=== PATIENT | male | born 1945 | race Caucasian/White ===

== ENCOUNTER → 2016-07-19 | Outpatient (CLI) | payer MEDICARE ==
[2016-07-19 09:02] VITALS: BP 122/83; PULSE 64; RESP 16; TEMP 97; BMI 27.8
[2016-07-19 11:19] LABS: HCT 40.9 % (39.0-53.0); HDW 2.58; HGB 13.1 gm/dL (13.0-17.5); MCH 31.1 pg (25.0-35.0); MCHC 31.9 g/dL (31.0-37.0); MCV 97.4 fL (80.0-100.0); Mean Platelet Volume 7.2; RDW 13.4 % (11.5-15.5); WBC 4.5 k/uL (3.8-10.6)
--- NOTE | 2016-07-19 11:27 | P.GSHP ---
History of Present Illness H&P Date: 07/19/16 Chief Complaint: Status post Anders-en-Y gastric bypass 07/06/2014 70 years old male with morbid obesity S/P lap RYGB on 07/06/14 presents for general assessment following Anders-en-Y gastric bypass. Denies any nausea or vomiting. Has been able to adhere to bariatric diet . He has joined [employer] and is increasing his physical activity. He is working in [employer] His comorbid conditions include diabetes mellitus (now resolved), coronary artery disease status post quadruple bypass , history of TIA, obstructive sleep apnea on CPAP, hypertension, hypercholesterolemia (now resolved )and A fib on Xarelto . He has resumed aspirin and PPI was started for prevention of gastric ulcerations. Intermittent rectal bleeding- streaks of bright blood. Last colonoscopy in 2012- known hemorrhoids Preopvisit #1 03/18/13: 193 kgs (425.6lbs) , BMI 54.6 Preopvisit #2 05/20/14: 187.3 kgs(413lbs), BMI 53 Preopvisit #3 07/01/14: 181.23 kgs, BMI 51.2 Operation day 07/06/14: 180.9 kgs, BMI 51 Postop visit # 1 07/15/14: 177.7 kgs, BMI 50.3 Postop visit #2 07/29/14: 169.78 kgs, BMI 48.1 Postop visit #3, 08/19/14: 162.84 kgs, BMI 46 Postop visit #4, 11/11/14: 146.92 kgs, BMI 41.5 Postop visit #5, 12/30/14: 139.66 kgs, BMI 39.5 Postop visit #6, 02/10/2015: 130 kgs, BMI 37 Postop visit #7, 03/17/2015: 127.63kgs, BMI 36.1 Postop visit #8, 06/16/2015: 115.26 KG, BMI 32.6 Postop visit #9, 12/15/2015: 102.24 KG, BMI 28.9 Postop visit #9, 12/15/2015: 98KG, BMI 27.8 - Review of Systems Comment: Constitutional: Denies fever, weight loss or loss of appetite HEENT: No difficulty in vision. Denies dysphagia. He has hearing difficulty Cardiovascular: Coronary artery disease status post quadruple bypass. Atrial fibrillation on Xarelto. Respiratory: Obstructive sleep apnea Gastrointestinal: No recent change in bowel habits, no abdominal pain, no nausea or vomiting. Denies reflux symptoms and no postprandial right upper quadrant pain. Colonoscopy was normal Integumentary: Excess skin along the lower abdomen and breast Genitourinary: No urinary incontinence, hematuria or dysuria Neurologic: No seizures, denies weakness in upper or lower extremities Musculoskeletal: Status post bilateral hip replacements . Status post-right knee replacement Psychiatry:No history of depression, no suicidal ideation, no anxiety or psychosis Social history: Patient is . He is actively participating in different school sports Past Medical History Past Medical History: Atrial Fibrillation, Coronary Artery Disease (CAD), Cancer , CVA/TIA, Hearing Disorder / Deafness, Hypertension, Sleep Apnea/CPAP/BIPAP Additional Past Medical History / Comment(s): TIA 2008, SKIN CA- BASAL CELL 2013 History of Any Multi-Drug Resistant Organisms: None Reported Past Surgical History: Back Surgery, Coronary Bypass/CABG, Joint Replacement, Orthopedic Surgery Additional Past Surgical History / Comment(s): 01-15-15 TOTAL RT KNEE ARTHROPLASTY. HIP REPLACEMENT BILATERAL, KNEE LEFT ARTHROSCOPY, DANA ACHILLIS TENDON REPAIR, CABG-4 VESSELS, MOHS SKIN CANCER SURGERY, ANDERS-EN-Y GASTRIC BYPASS (JUNE 2014) Past Anesthesia/Blood Transfusion Reactions: No Reported Reaction Past Psychological History: No Psychological Hx Reported Smoking Status: Former smoker Past Alcohol Use History: Rare Past Drug Use History: None Reported - Past Family History Father Family Medical History: Cancer, Myocardial Infarction (NM) Additional Family Medical History / Comment(s): SKIN CA, Mother Family Medical History: Memory Impairment Medications and Allergies Home Medications Medication Instructions Recorded Confirmed Type Simvastatin [Zocor] 40 mg PO HS 03/18/14 07/19/16 History Multivitamins, Thera [Multivitamin 2 tab PO DAILY 07/06/14 07/19/16 History (formulary)] Aspirin 81 mg PO DAILY 07/29/14 07/19/16 History Rivaroxaban [Xarelto] 20 mg PO DAILY 01/08/15 07/19/16 History Vitamin A 10,000 Units 10,000 units PO DAILY 01/08/15 07/19/16 History Calcium Citrate 500 mg PO TID 01/15/15 07/19/16 History Metoprolol Tartrate [Lopressor] 25 mg PO BID 03/17/15 07/19/16 History Hydrochlorothiazide 25 mg PO AC-BRKFST 06/16/15 07/19/16 History Lisinopril [Zestril] 10 mg PO BID 12/15/15 07/19/16 History Allergies Allergy/AdvReac Type Severity Reaction Status Date / Time No Known Allergies Allergy Verified 07/19/16 10:59 Surgical - Exam Vital Signs Temp Pulse Resp BP 97.0 F L 64 16 122/83 07/19/16 09:00 07/19/16 09:00 07/19/16 09:00 07/19/16 09:00 General: Patient is alert and oriented to time, place and person and cooperative with exam. HEENT: No pallor, no icterus, no thyroid enlargement. Chest: Bilateral equal breath sounds present. No wheezes, no crackles. Cardiovascular: Regular rate and rhythm. Abdomen: Soft, nontender, nondistended. No right upper quadrant tenderness. Surgical incisions are clean, dry and intact. Integumentary: No active ulcers or discharge. No panniculitis. Excess skin along the breasts and lower abdomen Neurologic: Cranial nerves II-XII intact. Strength upper and lower extremities 5/5. No focal neurologic deficits. Psychiatric: No anxiety or psychosis. No suicidal thoughts. Musculoskeletal: He walks without much difficulty Assessment and Plan (1) Atrial fibrillation Status: Acute (2) History of Anders-en-Y gastric bypass Status: Acute (3) Hypercholesteremia Status: Acute (4) S/P total knee arthroplasty Status: Acute Plan: S/P Lap RYGB with HTN, A fib, CAD and sleep apnea 1. Increase physical activity as tolerated 2. Continue Protonix 20 mg po daily to prevent marginal ulcers secondary to aspirin 3. Continue high protein diet and protein shakes. 4. Continue chewable MVI daily 5. Blood pressure medication adjustment as per primary 6. Follow-up in 1 year. 7. Repeat CBC, CMP and Vitamin and mineral levels 8. Rectal bleeding - Bright red most likely secondary to hemorrhoids and XArelto. Will check CBC
[2016-07-19 11:42] LABS: ALT 50 U/L (21-72); AST 39 U/L (17-59); Alkaline Phosphatase 74 U/L (38-126); Anion Gap 9 mmol/L; Blood Urea Nitrogen 16 mg/dL (9-20); Calcium 9.8 mg/dL (8.4-10.2); Carbon Dioxide 29 mmol/L (22-30); Chloride 104 mmol/L (98-107); Cholesterol 131 mg/dL (<200); Glucose 88 mg/dL (74-99); HDL Cholesterol 84 mg/dL (40-60); Iron 68 ug/dL (49-181); Magnesium 2.1 mg/dL (1.6-2.3); Non-African American GFR(MDRD) >60 (>60 ml/min/1.73 sqM); Phosphorous 3.7 mg/dL (2.5-4.5); Potassium 4.9 mmol/L (3.5-5.1); Sodium 142 mmol/L (137-145); Total Bilirubin 0.8 mg/dL (0.2-1.3); Total Protein 6.9 g/dL (6.3-8.2); Triglycerides 33 mg/dL (<150)
[2016-07-19 11:53] LABS: % Iron Saturation 19.6 % (20-50); Prealbumin 17 mg/dL (18-36); Total Iron Binding Capacity 347 ug/dL (261-462)
[2016-07-19 12:31] LABS: Hemoglobin A1C 5.2 % (4.2-6.1)
[2016-07-19 12:48] LABS: Vitamin B12 504 pg/mL
[2016-07-22 14:26] LABS: Selenium 182 mcg/L (63-160)
== END | disposition home or self-care (01) ==
LOC: BARWHC3 08:48
PROVIDERS: ATTEND Surgery
DX: E66.01 Morbid (severe) obesity due to excess calories (principal); I48.91 Unspecified atrial fibrillation; E78.00 Pure hypercholesterolemia, unspecified; I10 Essential (primary) hypertension; I25.10 Atherosclerotic heart disease of native coronary artery without angina pectoris; Z98.84 Bariatric surgery status; Z96.659 Presence of unspecified artificial knee joint; Z86.73 Personal history of transient ischemic attack (TIA), and cerebral infarction without residual deficits; Z87.891 Personal history of nicotine dependence; Z79.82 Long term (current) use of aspirin; Z79.899 Other long term (current) drug therapy; Z79.01 Long term (current) use of anticoagulants
CPT/HCPCS: 84255; 84134; 84425; 80061; 80053; 82607; 82728; 83036; 82525; 82746; 83540; 83550; 83735; 84100; 84443; 84590; 84630; 85027; 82306; 83970; G0463; 99211

== ENCOUNTER → 2017-06-13 | Outpatient (CLI) | payer MEDICARE ==
[2017-06-13 17:24] VITALS: BP 127/73; PULSE 66; TEMP 97.7; BMI 28.4
[2017-06-13 17:43] LABS: HCT 30.2 % (39.0-53.0); HGB 8.7 gm/dL (13.0-17.5); Hypochromasia Marked; MCH 22.8 pg (25.0-35.0); MCHC 28.8 g/dL (31.0-37.0); MCV 79.3 fL (80.0-100.0); Mean Platelet Volume 8.2; Platelet Count 269 k/uL (150-450); RBC 3.81 m/uL (4.30-5.90); RDW 15.7 % (11.5-15.5); WBC 4.8 k/uL (3.8-10.6)
[2017-06-13 17:57] LABS: ALT 26 U/L (21-72); AST 25 U/L (17-59); Albumin 3.9 g/dL (3.5-5.0); Alkaline Phosphatase 65 U/L (38-126); Anion Gap 12 mmol/L; Blood Urea Nitrogen 13 mg/dL (9-20); Calcium 9.4 mg/dL (8.4-10.2); Carbon Dioxide 26 mmol/L (22-30); Chloride 107 mmol/L (98-107); Cholesterol 127 mg/dL (<200); Glucose 67 mg/dL (74-99); HDL Cholesterol 80 mg/dL (40-60); LDL Cholesterol,Calculated 40 mg/dL (0-99); Phosphorus 3.9 mg/dL (2.5-4.5); Potassium 4.4 mmol/L (3.5-5.1); Sodium 145 mmol/L (137-145); Total Bilirubin 0.3 mg/dL (0.2-1.3); Total Protein 6.5 g/dL (6.3-8.2); Triglycerides 33 mg/dL (<150)
[2017-06-13 17:59] LABS: INR 1.1 (<1.2); Partial Thromboplastin Time 24.8 sec (22.0-30.0); Prothrombin Time 10.9 sec (9.0-12.0)
[2017-06-14 01:03] LABS: Parathyroid Hormone Intact 86.4 pg/mL (14.0-72.0)
[2017-06-14 01:47] LABS: Vitamin D 25 Hydroxy 27.1 ng/mL (30.0-100.0)
[2017-06-14 01:54] LABS: Folate, Serum 21.1 ng/mL; Iron Saturation 4.22 (15.00-50.00)
[2017-06-14 02:11] LABS: Hemoglobin A1C 5.5 % (4.0-6.0)
[2017-06-14 15:48] LABS: Zinc, Serum 53 ug/dL (60-130)
[2017-06-15 05:48] LABS: Vitamin A 32 ug/dL (38-106)
[2017-06-15 09:59] LABS: Vitamin B1 58 ug/L (38-122)
[2017-06-16 18:13] LABS: Selenium 170 mcg/L (63-160)
--- NOTE | 2017-07-07 18:08 | P.PN ---
Subjective Progress Note Date: 06/13/17 DATE OF SERVICE: 06/13/2017 REASON FOR CONSULTATION: Follow-up gastric bypass HISTORY OF PRESENT ILLNESS: Neil Munoz is a 71-year-old male who is status post gastric bypass 07/06/[address] De La Cruz. He is 3 years out. His previous weight was 425 pounds. His lowest weight was 211 pounds. Today he comes in 221 pounds. Since his visit 1 year ago, he gained 5 pounds. He has lost 204 pounds. [place] body weight 193 pounds. Percent excess weight loss is 88%. Body mass index reduced from 54.6 down to 28.4. Total BMI point reduction is 26.2. He is 28 pounds overweight. He feels great. He does report some abdominal pain along the left upper quadrant after eating. He takes blood thinners for his atrial fibrillation. He reports occasional dark stools. PAST MEDICAL HISTORY: 1. Morbid obesity. 2. Body mass index of 54.6, initial 3. Osteoarthritis of the knees. 4. Osteoarthritis of the hips. 5. Osteoarthritis of the lower back. 6. Obstructive sleep apnea, resolved 7. Hypertensive heart disease. 8. Basal cell skin cancer 9. Atrial fibrillation 10. Coronary artery disease 11. Cerebrovascular event with TIA 12. Diabetes mellitus type 2, resolved. 13. Hyperlipidemia 14. Gastroesophageal reflux disease 15. Diverticulosis PAST SURGICAL HISTORY: 1. Right knee replacement 2. Bilateral hip replacement 3. Left knee arthroscopy 4. Bilateral Achilles tendon repair 5. CABG 4 vessels 6. Mohs surgery for skin cancer removal 7. Gastric bypass, June 2014 8. Upper endoscopy 2014 9. Colonoscopy HOME MEDICATIONS: 1. Xarelto 2. Vitamin A 3. Zocor 4. Protonix 5. Multivitamin 6. Lopressor 7. Zestril 8. Calcium citrate 9. Aspirin ALLERGIES: Denies. SOCIAL HISTORY: No active tobacco use. Remote tobacco abuse. He is with at bedside. FAMILY HISTORY: No family history of ulcerative colitis disease or Crohn's disease. Family history of morbid obesity. No lupus in the family. No reports of stomach or esophageal cancer. Family history of diabetes type 2. Coronary artery disease in family. REVIEW OF ORGAN SYSTEMS: CONSTITUTIONAL: His previous weight was 425 pounds. His lowest weight was 211 pounds. Today he comes in 221 pounds. Since his visit 1 year ago, he gained 5 pounds. He has lost 204 pounds. [place] body weight 193 pounds. Percent excess weight loss is 88%. Body mass index reduced from 54.6 down to 28.4. Total BMI point reduction is 26.2. He is 28 pounds overweight. HEENT: Denies any active troubles with vision or hearing. No troubles with swallowing. ENDOCRINE: Diabetes, resolved. No hypothyroidism. CARDIOVASCULAR: No reports of palpitations or heart attacks or chest pain. Past myocardial ischemia. Atrial fibrillation. RESPIRATORY: Has daytime somnolence, resolved. No asthma. No recent pneumonia. GI: Denies any bright red blood per rectum. No diarrhea or constipation. Has dark stools. History of diverticulosis. MUSCULOSKELETAL: Has lower back pain and joint pain, improved. Has osteoarthritis of the knees, improved. NEURO: No headaches. No seizure disorders. PSYCH: No depression or suicidal ideation. RHEUMATOLOGIC: No lupus. No rheumatoid arthritis. HEMATOLOGIC: Denies any abnormal bleeding or bruising. No personal history of DVTs. SKIN: No rash. Past skin cancer. PHYSICAL EXAM: VITAL SIGNS: Height 6 foot 2 inches, weight 221 pounds. BMI 28.4 Vital Signs Temp 97.7 F 06/13/17 17:03 Pulse 66 06/13/17 17:03 Resp BP 127/73 06/13/17 17:03 Pulse Ox GENERAL: Well-developed in no acute distress. Well-groomed. HEENT: No scleral icterus. Extraocular movements grossly intact. Hears conversational speech. No nasal drainage. NECK: Supple without lymphadenopathy. CHEST: Nonlabored respirations with equal bilateral excursions. CARDIOVASCULAR: Irregular rate and irregular rhythm. Distal 2+ pulses. ABDOMEN: Obese, soft, nontender, nondistended. MUSCULOSKELETAL: No clubbing, cyanosis. Gross strength 5/5 distal lower extremities. No pre-tibial pitting edema. NEURO: No focal or lateralizing signs. Cranial nerves 2 through 12 grossly within normal limits. PSYCH: Appropriate affect. Alert and oriented to person, place and time. SKIN: Good skin turgor. Well perfused. Multiple ecchymoses along the skin over the forearms. ASSESSMENT: 1. Morbid obesity due to excess calories, resolved 2. Body mass index of 54.6 to 28.4. 3. Osteoarthritis of the knees. 4. Osteoarthritis of the hips. 5. Osteoarthritis of the lower back. 6. Obstructive sleep apnea, resolved 7. Hypertensive heart disease, improved 8. Basal cell skin cancer 9. Atrial fibrillation 10. Coronary artery disease 11. Cerebrovascular event with TIA 12. Diabetes mellitus type 2, resolved. 13. Hyperlipidemia 14. Gastroesophageal reflux disease 15. Diverticulosis 16. Gastrointestinal bleed 17. Epigastric abdominal pain PLAN: 1. Recommend bariatric metabolic panel. 2. He reports abdominal pain following eating. Recommend upper endoscopy. 3. He also reports dark stools which is consistent with gastrointestinal bleed. Recommend colonoscopy. 4. Recommend follow-up bariatric dietitian Thank you for this consultation. Laboratory Last Values WBC 4.8 k/uL (3.8-10.6) 06/13/17 17:16 RBC 3.81 m/uL (4.30-5.90) L 06/13/17 17:16 Hgb 8.7 gm/dL (13.0-17.5) L 06/13/17 17:16 Hct 30.2 % (39.0-53.0) L 06/13/17 17:16 MCV 79.3 fL (80.0-100.0) L 06/13/17 17:16 MCH 22.8 pg (25.0-35.0) L 06/13/17 17:16 MCHC 28.8 g/dL (31.0-37.0) L 06/13/17 17:16 RDW 15.7 % (11.5-15.5) H 06/13/17 17:16 Plt Count 269 k/uL (150-450) 06/13/17 17:16 Hypochromasia Marked 06/13/17 17:16 PT 10.9 sec (9.0-12.0) 06/13/17 17:16 INR 1.1 (<1.2) 06/13/17 17:16 APTT 24.8 sec (22.0-30.0) 06/13/17 17:16 Sodium 145 mmol/L (137-145) 06/13/17 17:16 Potassium 4.4 mmol/L (3.5-5.1) 06/13/17 17:16 Chloride 107 mmol/L (98-107) 06/13/17 17:16 Carbon Dioxide 26 mmol/L (22-30) 06/13/17 17:16 Anion Gap 12 mmol/L 06/13/17 17:16 BUN 13 mg/dL (9-20) 06/13/17 17:16 Creatinine 0.70 mg/dL (0.66-1.25) 06/13/17 17:16 Est GFR (CKD-EPI)AfAm >90 (>60 ml/min/1.73 sqM) 06/13/17 17:16 Est GFR (CKD-EPI)NonAf >90 (>60 ml/min/1.73 sqM) 06/13/17 17:16 Glucose 67 mg/dL (74-99) L 06/13/17 17:[address] Glu mg/dL 111 06/13/17 17:16 Hemoglobin A1c 5.5 % (4.0-6.0) 06/13/17 17:16 Calcium 9.4 mg/dL (8.4-10.2) 06/13/17 17:16 Phosphorus 3.9 mg/dL (2.5-4.5) 06/13/17 17:16 Magnesium 2.0 mg/dL (1.6-2.3) 06/13/17 17:16 Iron 20 ug/dL (65-175) L 06/13/17 17:16 TIBC 474 ug/dL (228-460) H 06/13/17 17:16 Iron Saturation 4.22 (15.00-50.00) L 06/13/17 17:16 Ferritin 10.2 ng/mL (22.0-322.0) L 06/13/17 17:16 Total Bilirubin 0.3 mg/dL (0.2-1.3) 06/13/17 17:16 AST 25 U/L (17-59) 06/13/17 17:16 ALT 26 U/L (21-72) 06/13/17 17:16 Alkaline Phosphatase 65 U/L (38-126) 06/13/17 17:16 Total Protein 6.5 g/dL (6.3-8.2) 06/13/17 17:16 Albumin 3.9 g/dL (3.5-5.0) 06/13/17 17:16 Prealbumin 17.0 mg/dL (18.0-42.0) L 06/13/17 17:16 Triglycerides 33 mg/dL (<150) 06/13/17 17:16 Cholesterol 127 mg/dL (<200) 06/13/17 17:16 LDL Cholesterol, Calc 40 mg/dL (0-99) 06/13/17 17:16 HDL Cholesterol 80 mg/dL (40-60) H 06/13/17 17:16 Vitamin A 32 ug/dL (38-106) L 06/13/17 17:16 Vitamin B1 58 ug/L (38-122) 06/13/17 17:16 Vitamin B12 580.0 pg/mL (200.0-944.0) 06/13/17 17:16 Vitamin D 25-Hydroxy 27.1 ng/mL (30.0-100.0) L 06/13/17 17:16 Folate 21.1 ng/mL 06/13/17 17:16 TSH 1.310 mIU/L (0.465-4.680) 06/13/17 17:16 PTH Intact 86.4 pg/mL (14.0-72.0) H 06/13/17 17:16 Copper 899 ug/L (665-1480) 06/13/17 17:16 Selenium 170 mcg/L (63-160) H 06/13/17 17:16 Zinc 53 ug/dL (60-130) L 06/13/17 17:16 Hemoglobin low MCHC and MCV low Glucose low Iron low Ferritin low Prealbumin level Vitamin A level HDL high Vitamin D level PTH elevated Selenium elevated Zinc low Review of labs consistent with multiple nutritional deficiencies. Recommend iron infusion Recommend vitamin supplement Recommend vitamin D supplement Recommend calcium supplement Reduce selenium intake Recommend zinc supplement Objective - Labs CBC & Chem 7: 06/13/17 17:16 06/13/17 17:16
== END | disposition home or self-care (01) ==
LOC: BARWHC3 15:15
PROVIDERS: ATTEND Surgery Plastic and Reconstructive Surgery
DX: Z09 Encounter for follow-up examination after completed treatment for conditions other than malignant neoplasm (principal); M17.0 Bilateral primary osteoarthritis of knee; M16.0 Bilateral primary osteoarthritis of hip; M19.90 Unspecified osteoarthritis, unspecified site; I11.9 Hypertensive heart disease without heart failure; I50.9 Heart failure, unspecified; C44.91 Basal cell carcinoma of skin, unspecified; I48.91 Unspecified atrial fibrillation; I25.10 Atherosclerotic heart disease of native coronary artery without angina pectoris; I67.89 Other cerebrovascular disease; E78.5 Hyperlipidemia, unspecified; K21.9 Gastro-esophageal reflux disease without esophagitis; K57.90 Diverticulosis of intestine, part unspecified, without perforation or abscess without bleeding; K92.2 Gastrointestinal hemorrhage, unspecified; R10.13 Epigastric pain; E21.1 Secondary hyperparathyroidism, not elsewhere classified; D50.9 Iron deficiency anemia, unspecified; K90.9 Intestinal malabsorption, unspecified; E44.0 Moderate protein-calorie malnutrition; E55.9 Vitamin D deficiency, unspecified; K74.1 Hepatic sclerosis; N19 Unspecified kidney failure; K50.90 Crohn's disease, unspecified, without complications; Z98.84 Bariatric surgery status; Z79.82 Long term (current) use of aspirin; Z79.899 Other long term (current) drug therapy
CPT/HCPCS: 84255; 84134; 84425; 80061; 80053; 82607; 82728; 82525; 82746; 83540; 83550; 83735; 84100; 84443; 84590; 84630; 85027; 85610; 85730; 82306; 83970; 83036; G0463; 99211

== ENCOUNTER → 2017-07-11 | Day surgery (SDC) | payer MEDICARE ==
[2017-07-09 12:10] VITALS: BMI 27.0
[~2017-07-11] MED LIST: LACTATED RINGERS 1,000 ML IV SCH; LIDOCAINE 1% 20 ML VIAL (10MG/ML) FOR IV START INTRADERMA PRN; LIDOCAINE 1% INJ 10MG/ML (20 ML MDV) ONE; PROPOFOL 10 MG/ML 20 ML VIAL IV ONE; RX INFO: IV CONTRAST WAS GIVEN 1 EACH MISC MISCELLANE PRN
--- NOTE | 2017-07-11 10:22 | P.GSHP ---
History of Present Illness H&P Date: 07/11/17 CHIEF COMPLAINT: GERD and colon screen HISTORY OF PRESENT ILLNESS: The patient is a 89year-old male who presents with gastroesophageal reflux disease and need for colon screen. Upper and lower endoscopy were offered for further evaluation and management. PAST MEDICAL HISTORY: Please see list. PAST SURGICAL HISTORY: Please see list. MEDICATIONS: Please see list. ALLERGIES: Please see list. SOCIAL HISTORY: No illicit drug use FAMILY HISTORY: No reports of Crohn disease or ulcerative colitis. REVIEW OF ORGAN SYSTEMS: CONSTITUTIONAL: No reports of fevers or chills. GI: Denies any blood in stools or constipation. PHYSICAL EXAM: VITAL SIGNS: Stable GENERAL: Well-developed pleasant in no acute distress. HEENT: No scleral icterus. Extraocular movements grossly intact. Moist buccal mucosa. NECK: Supple without lymphadenopathy. CHEST: Unlabored respirations. Equal bilateral excursions. CARDIOVASCULAR: Regular rate and rhythm. Distal 2+ pulses. ABDOMEN: Soft, nondistended. MUSCULOSKELETAL: No clubbing, cyanosis, or edema. ASSESSMENT: 1. Gastroesophageal reflux disease 2. Colon screen. PLAN: 1. Recommend proceeding with an upper and lower endoscopy Past Medical History Past Medical History: Atrial Fibrillation, Coronary Artery Disease (CAD), Cancer , CVA/TIA, Hypertension Additional Past Medical History / Comment(s): TIA 2008, SKIN CA- BASAL CELL 2013 History of Any Multi-Drug Resistant Organisms: None Reported Past Surgical History: Back Surgery, Coronary Bypass/CABG, Joint Replacement, Orthopedic Surgery Additional Past Surgical History / Comment(s): 01-15-15 TOTAL RT KNEE ARTHROPLASTY. HIP REPLACEMENT BILATERAL, KNEE LEFT ARTHROSCOPY, DANA ACHILLIS TENDON REPAIR, CABG-4 VESSELS, MOHS SKIN CANCER SURGERY, BRUNO-EN-Y GASTRIC BYPASS (JUNE 2014) Past Anesthesia/Blood Transfusion Reactions: No Reported Reaction Past Psychological History: No Psychological Hx Reported Smoking Status: Former smoker Past Alcohol Use History: Rare Past Drug Use History: None Reported - Past Family History Father Family Medical History: Cancer, Myocardial Infarction ([place]) Additional Family Medical History / Comment(s): SKIN CA, Mother Family Medical History: Memory Impairment Medications and Allergies Home Medications Medication Instructions Recorded Confirmed Type Simvastatin [Zocor] 40 mg PO HS 03/18/14 07/09/17 History Multivitamins, Thera [Multivitamin 2 tab PO DAILY 07/06/14 07/09/17 History (formulary)] Pantoprazole Sodium [Protonix] 20 mg PO DAILY #30 tab 07/15/14 07/09/17 Rx Aspirin 81 mg PO DAILY 07/29/14 07/09/17 History Rivaroxaban [Xarelto] 20 mg PO DAILY 01/08/15 07/09/17 History Vitamin A 10,000 Units 10,000 units PO DAILY 01/08/15 07/09/17 History Calcium Citrate 500 mg PO TID 01/15/15 07/09/17 History Metoprolol Tartrate [Lopressor] 25 mg PO BID 03/17/15 07/09/17 History Lisinopril [Zestril] 10 mg PO BID 12/15/15 07/09/17 History Allergies Allergy/AdvReac Type Severity Reaction Status Date / Time No Known Allergies Allergy Verified 07/09/17 12:03
[2017-07-11 11:01] VITALS: TEMP 97.9
[2017-07-11 12:15] VITALS: BP 133/80
[2017-07-11 12:23] VITALS: PULSE 78; RESP 18
--- NOTE | 2017-07-11 12:35 | P.PCN ---
Date of Procedure: 07/11/17 Description of Procedure: PREOPERATIVE DIAGNOSIS: Dysphagia. Epigastric abdominal pain History of gastric bypass Anemia POSTOPERATIVE DIAGNOSIS: Dysphagia. 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 INDICATIONS: The patient is a 71-year-old female who presents with a history of dysphagia, including new-onset nausea and vomiting. Benefits and risks of the procedure were described. Informed consent was obtained. DESCRIPTION: The patient was brought into the endoscopy suite and laid in the left lateral decubitus position. After a timeout was confirmed, the procedure was initiated. An Olympus gastroscope was passed along the posterior oropharynx down to the distal esophagus where the squamocolumnar junction was unremarkable. The gastric pouch was entered. A gastrojejunal anastomosis was over 20 mm as the adult gastroscope was 9.5 mm in size. The scope was advanced up to 60 cm from the incisors into the Anders limb. However chronic gastrojejunal marginal ulcer was encountered. No full-thickness injury was encountered. The GI tract was desufflated. The patient tolerated the procedure well. FINDINGS: Chronic gastrojejunal ulceration encountered. Widely patent gastrojejunal anastomosis RECOMMENDATIONS: Upper endoscopy as needed. Omeprazole for 2 weeks.
--- NOTE | 2017-07-11 12:52 | P.PCN ---
Date of Procedure: 07/11/17 Description of Procedure: PREOPERATIVE DIAGNOSIS: Colonoscopy screening. Iron deficiency anemia due to chronic blood loss Pandiverticulosis POSTOPERATIVE DIAGNOSIS: Colonoscopy screening. Iron deficiency anemia due to chronic blood loss Malignant adenoma, sigmoid Pandiverticulosis OPERATION: Colonoscopy to the ileocecal valve and appendiceal orifice. Colonoscopy with snare polypectomy Colonoscopy with cold forceps biopsy Colonoscopy with Chely ink tatto at 20 cm from the anal verge. SURGEON: Joi Vegas MD. ANESTHESIA: MAC. INDICATIONS: The patient is a 71-year-old male who presents for colonoscopy screening. Benefits and risks were described and informed consent was obtained. DESCRIPTION OF PROCEDURE: The patient had undergone Gatorade, MiraLAX and Dulcolax prep. He had been brought into the operating room and laid in the left lateral decubitus position. After adequate intravenous sedation, the rectum was examined with 2% lidocaine jelly. No external hemorrhoids were encountered. The rectal tone was within normal limits. No lesions were palpated in the rectal vault. An Olympus colonoscope was advanced until the ileocecal valve and appendiceal orifice were clearly viewed. The prep was fair with visualization of the mucosal folds. The scope was removed with visualization of each mucosal fold. Large scattered diverticulosis was encountered. No evidence of focal colitis was found. At 20 cm from the anal verge, a flat villous adenoma incorporating 40% of the circumference of the lumen was found over 3 cm in size. Cold biopsy forceps including snare polypectomy was performed. Chely ink 5 mL was placed proximal and distal and circumferential to the tumor. Scope demonstrated no grade 1 internal hemorrhoids. The colon was desufflated. The patient had tolerated the procedure well. Withdrawal time was over 6 minutes. FINDINGS: No internal hemorrhoids No external hemorrhoids No arteriovenous malformations. Severe pandiverticulosis At 20 cm from the anal verge, a flat villous adenoma incorporating 40% of the circumference of the lumen was found over 3 cm in size. No focal colitis. RECOMMENDATIONS: 1. Recommend CEA level and alpha-fetoprotein tumor marker level 2. CT of the abdomen and pelvis with IV contrast for metastatic workup 3. Will need sigmoid colectomy Plan - Discharge Summary Discharge Rx Participant: Yes New Discharge Prescriptions: New Omeprazole 40 mg PO DAILY #30 capsule.dr Discontinued Pantoprazole Sodium [Protonix] 20 mg PO DAILY #30 tab No Action Simvastatin [Zocor] 40 mg PO HS Multivitamins, Thera [Multivitamin (formulary)] 2 tab PO DAILY Aspirin 81 mg PO DAILY Vitamin A 10,000 Units 10,000 units PO DAILY Rivaroxaban [Xarelto] 20 mg PO DAILY Calcium Citrate 500 mg PO TID Metoprolol Tartrate [Lopressor] 25 mg PO BID Lisinopril [Zestril] 10 mg PO BID Discharge Medication List Simvastatin [Zocor] 40 mg PO HS 03/18/14 [History] Multivitamins, Thera [Multivitamin (formulary)] 2 tab PO DAILY 07/06/14 [History ] Aspirin 81 mg PO DAILY 07/29/14 [History] Rivaroxaban [Xarelto] 20 mg PO DAILY 01/08/15 [History] Vitamin A 10,000 Units 10,000 units PO DAILY 01/08/15 [History] Calcium Citrate 500 mg PO TID 01/15/15 [History] Metoprolol Tartrate [Lopressor] 25 mg PO BID 03/17/15 [History] Lisinopril [Zestril] 10 mg PO BID 12/15/15 [History] Omeprazole 40 mg PO DAILY #30 capsule. 07/11/17 [Rx] Follow up Appointment(s)/Referral(s): Joi Vegas MD [STAFF PHYSICIAN] - 07/17/17 10:00 am Patient Instructions/Handouts: *Sur[facility] - (Anesthesia) Endoscopy Discharge Instructions, Colonoscopy (DC), Colonoscopy (GEN), Diverticulosis (DC), Diverticulosis (GEN), Diet for Stomach Ulcers and Gastritis (GEN), Upper Endoscopy (DC), Colorectal Polyps (DC), Diverticulosis Diet (GEN) Activity/Diet/Wound Care/Special Instructions: May start Xarelto 07/13/17. Discharge Disposition: HOME SELF-CARE
[2017-07-11 13:06] LABS: Anion Gap 16 mmol/L; Blood Urea Nitrogen 9 mg/dL (9-20); Calcium 9.2 mg/dL (8.4-10.2); Carbon Dioxide 26 mmol/L (22-30); Chloride 107 mmol/L (98-107); Glucose 82 mg/dL (74-99); Potassium 4.8 mmol/L (3.5-5.1); Sodium 149 mmol/L (137-145)
--- NOTE | 2017-07-11 13:39 | CT ---
EXAMINATION TYPE: CT abdomen pelvis w con DATE OF EXAM: 07/11/2017 COMPARISON: NONE HISTORY: anemic, blood in stool, abn colonoscopy CT DLP: 1221.8 mGycm CONTRAST: CT scan of the abdomen and pelvis is performed without Oral Contrast and with IV Contrast, patient in jected with 100 mL of Isovue 300. FINDINGS: LUNG BASES-: No visible nodule. No infiltrate. LIVER/GB: Calcified gallstones are identified. No wall thickening seen. No space occupying hepatic lesion. Biliary tree is of normal caliber. PANCREAS: No inflammation. No distinct mass. SPLEEN: No splenic enlargement. No lesion seen. ADRENALS: No nodule. No thickening. KIDNEYS/BLADDER: No hydronephrosis. Nonobstructing calculus upper pole left kidney measures approxim ately 3 to 4 mm. No distinct renal mass. Urinary bladder grossly unremarkable. BOWEL: Postoperative changes of partial colectomy. No evidence for recurrent mass or obstruction martinez biju colonoscopy is recommended for further evaluation. Small bowel is of normal caliber. Nonvisualiza tion of the appendix. GENITAL ORGANS: No gross abnormality. LYMPH NODES: No greater than 1cm abdominal or pelvic lymph nodes are appreciated. AORTA: No significant abnormality. OSSEOUS STRUCTURES: Streak artifact bilateral hips secondary to prostheses. Generative changes lumbar spine.. OTHER: No significant additional abnormality is seen. IMPRESSION: 1. No evidence for metastatic disease or recurrent lesion. If symptoms persist direct visualization i s advised. 2. Cholelithiasis.
[2017-07-11 19:49] LABS: Alpha Fetoprotein, Tumor Mkr <1.3 ng/mL (0.0-7.9)
--- NOTE | 2017-07-13 16:44 | CDI ---
Outpatient Documentation Clarification Form Date: 07/13/17 CDS/Hair Specialist Name: Shahnaz Zapien Phone: If any questions, call Karol Hooker Damage Assessor at [phone] Patient Name: Neil Munoz Admit Date: 07/11/17 Discharge Date: 07/11/17 ATTENTION: The [facility] Coding Staff appreciate your assistance in clarifying documentation. Please respond to the clarification below the line at the bottom and electronically sign. The [facility] Coding staff will review the response and follow-up if needed. Please note: Queries are made part of the Legal Health Record. If you have any questions, please contact the Damage Assessor. Dear Dr. Vegas, Your op report indicates chronic blood loss and the anesthesiologist documented a gastrointestinal hemorrhage. Does the patient in fact have a GI bleed, and if so, what is the cause or source? Thank you for your kind consideration. Chronic blood loss......NOT active GI hemorrhage...KM 07/13/17 RADAMESD
== END | disposition home or self-care (01) ==
LOC: ORWHC2ENDO 08:45
PROVIDERS: ATTEND Surgery Plastic and Reconstructive Surgery
DX: C18.7 Malignant neoplasm of sigmoid colon (principal); K57.30 Diverticulosis of large intestine without perforation or abscess without bleeding; K28.7 Chronic gastrojejunal ulcer without hemorrhage or perforation; R13.10 Dysphagia, unspecified; D50.0 Iron deficiency anemia secondary to blood loss (chronic); Z98.84 Bariatric surgery status; K80.20 Calculus of gallbladder without cholecystitis without obstruction; I48.91 Unspecified atrial fibrillation; I25.10 Atherosclerotic heart disease of native coronary artery without angina pectoris; I10 Essential (primary) hypertension; E66.9 Obesity, unspecified; Z68.27 Body mass index [BMI] 27.0-27.9, adult; Z95.1 Presence of aortocoronary bypass graft; Z85.828 Personal history of other malignant neoplasm of skin; Z86.73 Personal history of transient ischemic attack (TIA), and cerebral infarction without residual deficits; Z79.82 Long term (current) use of aspirin; Z79.899 Other long term (current) drug therapy; Z87.891 Personal history of nicotine dependence
CPT/HCPCS: 88305; 80048; 82378; 82105; 74177; 45385; 43235; 45381; J2001; J2704; 43243; 45380

== ENCOUNTER → 2017-08-23 | Outpatient (CLI) | payer MEDICARE ==
[2017-08-23 08:48] LABS: Anisocytosis Slight; HCT 28.2 % (39.0-53.0); HGB 8.1 gm/dL (13.0-17.5); Hypochromasia Marked; MCH 21.4 pg (25.0-35.0); MCHC 28.9 g/dL (31.0-37.0); MCV 74.2 fL (80.0-100.0); Mean Platelet Volume 6.9; Microcytosis Moderate; Platelet Count 239 k/uL (150-450); Poikilocytosis Slight; RDW 17.6 % (11.5-15.5); WBC 6.7 k/uL (3.8-10.6)
[2017-08-23 09:02] LABS: Potassium 4.1 mmol/L (3.5-5.1)
== END | disposition home or self-care (01) ==
LOC: LABWHC1 08:27
PROVIDERS: ATTEND Anesthesiology
DX: Z01.812 Encounter for preprocedural laboratory examination (principal)
CPT/HCPCS: 36415; 80051; 85027

== ENCOUNTER 2017-08-27 11:37 | Inpatient (IN) | payer MEDICARE ==
[2017-08-22 11:59] VITALS: BMI 26.9
--- NOTE | 2017-08-27 06:40 | P.GSHP ---
History of Present Illness H&P Date: 08/27/17 CHIEF COMPLAINT: History of colon cancer and gallstones HISTORY OF PRESENT ILLNESS: The patient is an 71 year-old male who comes in with colon cancer of the sigmoid colon. He also has large symptomatic gallstones. He presents today for resection of his colon cancer as well as cholecystectomy. PAST MEDICAL HISTORY: Please see list. PAST SURGICAL HISTORY: Please see list. MEDICATIONS: Please see list. ALLERGIES: Please see list. SOCIAL HISTORY: No illicit drug use FAMILY HISTORY: No reports of Crohn disease or ulcerative colitis. REVIEW OF ORGAN SYSTEMS: Cardiovascular: No reports of chest pain or heart attacks. History of ischemic cardiomyopathy CONSTITUTIONAL: No fevers or chills. Weight loss over 150+ pounds HEENT: Denies any trouble with vision, hearing or nosebleeds. No difficulty swallowing. LYMPHATIC: The patient denies any lumps and bumps around the neck. ENDOCRINE: Denies any thyroid disorders. Denies any blood sugar glucose intolerance. RESPIRATORY: Denies pneumonia. Denies any troubles with breathing or dyspnea on exertion. GASTROINTESTINAL: Denies fatty food intolerance. History of blood in stools GENITOURINARY: Denies any blood in urine or increased urinary frequency. MUSCULOSKELETAL: Has back pain, stiffness or joint arthritis. NEUROLOGIC: Denies any numbness or tingling along the distal extremities. No seizure disorders or headaches. PSYCHIATRIC: Denies any depression or suicidal ideation. HEMATOLOGIC: Has abnormal bleeding or bruising. BREASTS: Denies any breast lumps, pain or nipple discharge. PHYSICAL EXAM: VITAL SIGNS: Stable Patient is a 71-year-old male. Abdomen: Soft and protuberant. GENERAL: Well developed and in no acute distress. Pleasant. HEENT: No sclera icterus. Extraocular movements grossly intact. Moist buccal mucosa. Head is atraumatic, normocephalic. Hears conversational speech. No nasal drainage. NECK: Supple without lymphadenopathy. No JV distention. CHEST: Non-labored respirations and equal bilateral excursions. CARDIOVASCULAR: Irregular rate and rhythm. Palpable 2+ radial pulses. MUSCULOSKELETAL: No clubbing, cyanosis or edema. NEUROLOGIC: No focal or lateralizing signs. PSYCH: Appropriate affect. Alert and oriented to person, place and time. SKIN: Well perfused. Good skin turgor. STUDIES: CT of the abdomen was reviewed in detail with findings of large gallstones static disease. Colonoscopy details were found and consistent with sigmoid colon adenoma ASSESSMENT: 1. Colon cancer. 2. Large gallstones. 3. Iron deficiency anemia PLAN: 1. I have recommended robotic cholecystectomy. 2. Also recommend robotic assisted approach was described for low anterior resection 3. He will need enhanced colon protocol. 4. Inpatient hospitalization for 2 nights and more 5. DVT prophylaxis. 6. Antibiotic prophylaxis. Past Medical History Past Medical History: Atrial Fibrillation, Coronary Artery Disease (CAD), Cancer , CVA/TIA, Hyperlipidemia, Hypertension Additional Past Medical History / Comment(s): COLON CA, TIA 2008, SKIN CA- BASAL CELL 2013 History of Any Multi-Drug Resistant Organisms: None Reported Past Surgical History: Back Surgery, Coronary Bypass/CABG, Joint Replacement, Orthopedic Surgery Additional Past Surgical History / Comment(s): 01-15-15 TOTAL RT KNEE ARTHROPLASTY.DANA HIP REPLACEMENT, KNEE LEFT ARTHROSCOPY, DANA ACHILLIS TENDON REPAIR, CABG-4 VESSELS, MOHS SKIN CANCER SURGERY, BRUNO-EN-Y GASTRIC BYPASS ( JUNE 2014) Past Anesthesia/Blood Transfusion Reactions: Postoperative Nausea & Vomiting ( PONV) Smoking Status: Never smoker - Past Family History Father Family Medical History: Cancer, Myocardial Infarction ([place]) Additional Family Medical History / Comment(s): SKIN CA, Mother Family Medical History: Memory Impairment Medications and Allergies Home Medications Medication Instructions Recorded Confirmed Type Simvastatin [Zocor] 40 mg PO HS 03/18/14 08/22/17 History Rivaroxaban [Xarelto] 20 mg PO DAILY 01/08/15 08/22/17 History Vitamin A 10,000 Units 10,000 units PO QAM 01/08/15 08/22/17 History Calcium Citrate 500 mg PO TID 01/15/15 08/22/17 History Metoprolol Tartrate [Lopressor] 50 mg PO QAM 03/17/15 08/22/17 History Lisinopril [Zestril] 10 mg PO BID 12/15/15 08/22/17 History Omeprazole 40 mg PO DAILY #30 capsule. 07/11/17 08/22/17 Rx Aspirin [Adult Low Dose Aspirin EC] 81 mg PO DAILY 08/22/17 08/22/17 History Multivitamin [Multivitamins Adult 1 each PO DAILY 08/22/17 08/22/17 History Gummies] Allergies Allergy/AdvReac Type Severity Reaction Status Date / Time No Known Allergies Allergy Verified 08/22/17 11:52
[~2017-08-27 11:37] MED LIST changes: +ACETAMINOPHEN TAB 500 MG TAB PO ONE; +Antibiotics per Pharmacy 1 EACH MISC MISCELLANE PRN; +DEXAMETHASONE SOD PHOSPHATE 10 MG/ML 1 ML VIAL IV ONE; +HEPARIN SODIUM,PORCINE 5,000 UNIT/ML 1 ML VIAL SQ ONE; +HYDROmorphone 0.5 MG/0.5 ML SYRINGE IVP PRN; -LACTATED RINGERS 1,000 ML IV SCH; -LIDOCAINE 1% 20 ML VIAL (10MG/ML) FOR IV START INTRADERMA PRN; -LIDOCAINE 1% INJ 10MG/ML (20 ML MDV) ONE; +MIDAZOLAM 2 MG/2 ML VIAL IV PRN; +ONDANSETRON 4 MG/2 ML VIAL IVP ONE; -PROPOFOL 10 MG/ML 20 ML VIAL IV ONE; -RX INFO: IV CONTRAST WAS GIVEN 1 EACH MISC MISCELLANE PRN; +ceFAZolin IN SWFI 2 GM/20 ML SYRINGE IVP ONE; +metroNIDAZOLE-NS PMX 500 MG in SALINE 1 100ML.BAG IVPB ONE
[2017-08-27] MEDS: ALVIMOPAN 12 MG CAPSULE PO ONE (12:00)
[2017-08-27] MEDS: LACTATED RINGERS 1,000 ML IV SCH ×3 (12:19→13:29)
[2017-08-27] MEDS ORDERED: LIDOCAINE 1% 20 ML VIAL (10MG/ML) FOR IV START INTRADERMA ONE ×2 (12:20→12:21)
[2017-08-27 12:41] LABS: ALT 35 U/L (21-72); AST 27 U/L (17-59); Albumin 3.8 g/dL (3.5-5.0); Alkaline Phosphatase 65 U/L (38-126); Anion Gap 10 mmol/L; Blood Urea Nitrogen 10 mg/dL (9-20); Calcium 9.1 mg/dL (8.4-10.2); Carbon Dioxide 25 mmol/L (22-30); Chloride 106 mmol/L (98-107); Glucose 104 mg/dL (74-99); Potassium 4.1 mmol/L (3.5-5.1); Sodium 141 mmol/L (137-145); Total Bilirubin 0.4 mg/dL (0.2-1.3); Total Protein 6.2 g/dL (6.3-8.2)
[2017-08-27 12:51] LABS: Anisocytosis Slight; HCT 28.8 % (39.0-53.0); HGB 8.6 gm/dL (13.0-17.5); Hypochromasia Marked; MCH 21.5 pg (25.0-35.0); MCHC 29.8 g/dL (31.0-37.0); MCV 72.1 fL (80.0-100.0); Microcytosis Moderate; Platelet Count 276 k/uL (150-450); Poikilocytosis Slight; RBC 3.99 m/uL (4.30-5.90); RDW 17.6 % (11.5-15.5); WBC 4.2 k/uL (3.8-10.6)
[2017-08-27 13:04] LABS: Lymphocytes # (M) 0.71 k/uL (1.0-4.8); Monocytes # (M) 0.21 k/uL (0-1.0); Neutrophils # (M) 3.28 k/uL (1.3-7.7); Neutrophils % (M) 78 %; Nucleated Red Blood Cells 0 /100 WBC (0-0); Total Cells Counted 100
[2017-08-27] MEDS ORDERED: fentaNYL (PF) 50 MCG/ML 2 ML AMP IVP ONE ×2 (13:15→13:28)
[2017-08-27] MEDS ORDERED: NALOXONE 0.4 MG/ML 1 ML VIAL IV PRN (13:24)
[2017-08-27] MEDS ORDERED: ROPIVACAINE 400 MG, HYDROMORPHONE (PF) 5 MG in SODIUM CHLORIDE 0.9% 170 ML EPIDURAL PRN (13:24)
[2017-08-27] MEDS ORDERED: fentaNYL (PF) 50 MCG/ML 2 ML AMP ONE (13:25)
[2017-08-27] MEDS ORDERED: SUCCINYLCHOLINE CHLORIDE 100 MG/5 ML SYR IV ONE (13:25)
[2017-08-27] MEDS ORDERED: INDOCYANINE GREEN 25 MG VIAL IV ONE (13:25)
[2017-08-27] MEDS ORDERED: ROCURONIUM BROMIDE 10 MG/ML 10 ML VIAL IV ONE (13:25)
[2017-08-27] MEDS ORDERED: PROPOFOL 10 MG/ML 20 ML VIAL IV ONE (13:25)
[2017-08-27] MEDS ORDERED: LIDOCAINE 1% INJ 10MG/ML (20 ML MDV) ONE (13:25)
[2017-08-27] MEDS ORDERED: MIDAZOLAM 2 MG/2 ML VIAL ONE (13:25)
[2017-08-27] MEDS ORDERED: ePHEDrine SULFATE/0.9% NACL/PF 50 MG/5 ML SYRINGE IV ONE (13:25)
[2017-08-27] MEDS ORDERED: GLYCOPYRROLATE 0.2 MG/ML 2 ML VIAL ONE (13:25)
[2017-08-27] MEDS ORDERED: PHENYLEPHRINE-0.9% NACL SYG 1 MG/10 ML SYRINGE ONE (13:25)
[2017-08-27] MEDS ORDERED: NEOSTIGMINE 1 MG/ML 10 ML VIAL ONE (13:25)
[2017-08-27] MEDS ORDERED: MIDAZOLAM 2 MG/2 ML VIAL IVP ONE (13:27)
[2017-08-27] MEDS ORDERED: BUPIVACAINE (PF) 0.5% 30 ML VIAL SQ ONE (14:07)
[2017-08-27] MEDS ORDERED: INDOCYANINE GREEN 25 MG VIAL IV STA (14:26)
[2017-08-27] MEDS ORDERED: LACTATED RINGERS 1,000 ML IV ONE ×3 (18:29→20:42)
[2017-08-27] MEDS ORDERED: BENZOCAINE/MENTHOL LOZENG 1 EACH LOZENGE MUCOUS MEM PRN (21:18)
[2017-08-27] MEDS ORDERED: ONDANSETRON 4 MG/2 ML VIAL IVP PRN (21:18)
--- NOTE | 2017-08-27 21:18 | P.PCN ---
Date of Procedure: 08/27/17 Preoperative Diagnosis: Sigmoid colon cancer, gallstones Postoperative Diagnosis: Acute cholecystitis with cystic duct obstruction, sigmoid colon cancer, right iliac aneurysm, sigmoid diverticulosis Procedure(s) Performed: Robotic cholecystectomy with FIREFLY, Robotic low anterior resection with 29 mm ILS, intraoperative sigmoidoscopy, placement of round #19 drain pelvis Anesthesia: GETA, local, epidural Surgeon: Joi Vegas Estimated Blood Loss (ml): 30 Pathology: other (gallbladder, low anterior resection, anastomosis) Condition: stable Disposition: floor Operative Findings: 1. Tumor confirmed between 15 to 20 cm from anal verge. 2. Low anterior resection performed. 3. Redundant sigmoid colon 4. Anterior colotomy along descending colon for EEA 29 mm anastomosis 5. Anastomosis with residual tumor resected in EEA 6. Intact donuts, thick 7. Acute cholecystitis with cystic duct obstruction confirmed with FIREFLY 8. Right iliac aneurysm identified 9. Intra-op colonoscope used to identify tumor resection
[2017-08-27] MEDS: ceFAZolin IN SWFI 2 GM/20 ML SYRINGE IVP SCH (23:50)
[2017-08-27] MEDS: metroNIDAZOLE-NS PMX 500 MG in SALINE 1 100ML.BAG IVPB SCH (23:50)
[2017-08-28] MEDS: ALVIMOPAN 12 MG CAPSULE PO ONE (00:49)
[2017-08-28] MEDS: D5-0.45% NACL WITH KCL 20MEQ/L 1,000 ML IV SCH ×4 (00:50→19:08)
[2017-08-28] MEDS: metroNIDAZOLE-NS PMX 500 MG in SALINE 1 100ML.BAG IVPB SCH ×3 (05:01→17:58)
--- NOTE | 2017-08-28 06:33 | P.PN ---
Progress Note - Text Progress Note Date: 08/28/17 71-year-old male status post robotic-assisted laparoscopic sigmoid colectomy and cholecystectomy. Postop day #1, catheter day #2. Patient is currently doing well VAS is 3/10, surgical incision sites look clean dry and intact, epidural site looks clean dry and intact. Patient has no motor weakness, no sensory deficits. Current solutions ropivacaine with fentanyl running at a rate of 10 ML's an hour. Assessment and plan: Continue epidural at current settings, discontinue when patient is stable for discharge or catheter day #4
[2017-08-28 07:02] LABS: Anisocytosis Slight; Basophils % (A) 0 %; Eosinophils % (A) 0 %; HCT 26.3 % (39.0-53.0); HGB 7.6 gm/dL (13.0-17.5); Hypochromasia Marked; Lymphocytes # (A) 0.6 k/uL (1.0-4.8); Lymphocytes % (A) 7 %; MCV 72.3 fL (80.0-100.0); Mean Platelet Volume 7.3; Microcytosis Moderate; Monocytes # (A) 0.3 k/uL (0-1.0); Monocytes % (A) 5 %; Neutrophils # (A) 6.4 k/uL (1.3-7.7); Neutrophils % (A) 85 %; Platelet Count 228 k/uL (150-450); RBC 3.64 m/uL (4.30-5.90); RDW 17.4 % (11.5-15.5); WBC 7.5 k/uL (3.8-10.6)
[2017-08-28 07:12] LABS: Anion Gap 8 mmol/L; Blood Urea Nitrogen 11 mg/dL (9-20); Calcium 8.5 mg/dL (8.4-10.2); Carbon Dioxide 27 mmol/L (22-30); Chloride 104 mmol/L (98-107); Glucose 120 mg/dL (74-99); Potassium 4.7 mmol/L (3.5-5.1); Sodium 139 mmol/L (137-145)
[2017-08-28] MEDS: ALVIMOPAN 12 MG CAPSULE PO SCH ×2 (08:16→21:05)
[2017-08-28] MEDS: PANTOPRAZOLE 40 MG TABLET PO SCH (08:16)
[2017-08-28] MEDS: METOPROLOL TARTRATE 50 MG TAB PO SCH (08:17)
[2017-08-28] MEDS: HEPARIN SODIUM,PORCINE 5,000 UNIT/ML 1 ML VIAL SQ SCH ×2 (08:17→21:05)
[2017-08-28] MEDS: LISINOPRIL 10 MG TAB PO SCH ×2 (08:17→21:21)
[2017-08-28] MEDS: ceFAZolin IN SWFI 2 GM/20 ML SYRINGE IVP SCH ×2 (08:30→16:08)
[2017-08-28] MEDS: SODIUM FERRIC GLUCONAT-SUCROSE 125 MG in SODIUM CHLORIDE 0.9% 100 ML IVPB SCH (08:31)
--- NOTE | 2017-08-28 10:15 | P.PN ---
<Jacy Lechugabonnie Dillon - Last Filed: 08/28/17 09:57> Subjective Progress Note Date: 08/28/17 71-year-old male seen and examined at bedside. Sitting up in bed states the pain medication effective for pain control epidural in place per anesthesia for pain management. Currently tolerating a clear liquid diet no reports of nausea surgical dressing site dry. AMY drain in place serous drainage. Surgical tenderness appropriate not distended hemoglobin 7.6 white count 7.5 electrolytes within normal limits afebrile Robotic cholecystectomy with FIREFLY, Robotic low anterior resection with 29 mm ILS, intraoperative sigmoidoscopy, placement of round #19 drain pelvis done for sigmoid colon cancer and gallstones Objective - Vital Signs Vital signs: Vital Signs Temp 97.1 F L 08/28/17 07:37 Pulse 61 08/28/17 07:37 Resp 16 08/28/17 08:43 BP 115/71 08/28/17 07:37 Pulse Ox 97 08/28/17 08:15 Intake & Output 08/27/17 08/28/17 08/28/17 18:59 06:59 18:59 Intake Total 3100 2350 250 Output Total 680 820 100 Balance 2420 1530 150 Intake: IV 3100 1000 Intake, IV Titration 1100 Amount D5-0.45% NaCl with KCl 1000 20Meq/l 1,000 ml @ 125 mls/hr IV .Q8H [facility] Rx#: [id number] metroNIDAZOLE-NS PMX 500 100 mg In Saline 1 100ml.bag @ 100 mls/hr IVPB Q6HR [facility] Rx#:[id number] Oral 250 250 Output: Drainage 120 100 Right Lower Abdomen 120 100 Urine 650 700 Estimated Blood Loss 30 Other: Voiding Method Indwelling Catheter Indwelling Catheter - Exam Physical exam Pleasant 71-year-old male sitting up in bed taking clear liquids tolerating no nausea no vomiting states pain medication effective for pain control Lungs adequate air movement bilaterally sats are 97% on room air Heart S1-S2 audible regular Abdomen AMY drain serous drainage surgical dressing dry. Hypoactive bowel tones indwelling Chinchilla catheter in place surgical tenderness appropriate reports no nausea vomiting not passing gas extremities Venodyne's on to the bilateral lower extremities - Labs CBC & Chem 7: 08/28/17 06:25 08/28/17 06:25 Labs: Abnormal Lab Results - Last 24 Hours (Table) 06/08/27/17 08/28/17 Range/Units 12:00 12:00 06:25 RBC 3.99 L 3.64 L (4.30-5.90) m/uL Hgb 8.6 L 7.6 L (13.0-17.5) gm/dL Hct 28.8 L 26.3 L (39.0-53.0) % MCV 72.1 L 72.3 L (80.0-100.0) fL MCH 21.5 L 21.0 L (25.0-35.0) pg MCHC 29.8 L 29.0 L (31.0-37.0) g/dL RDW 17.6 H 17.4 H (11.5-15.5) % Lymphocytes # 0.6 L (1.0-4.8) k/uL Lymphocytes # (Manual) 0.71 L (1.0-4.8) k/uL Creatinine 0.53 L (0.66-1.25) mg/dL Glucose 104 H (74-99) mg/dL Total Protein 6.2 L (6.3-8.2) g/dL 08/28/17 Range/Units 06:25 RBC (4.30-5.90) m/uL Hgb (13.0-17.5) gm/dL Hct (39.0-53.0) % MCV (80.0-100.0) fL MCH (25.0-35.0) pg MCHC (31.0-37.0) g/dL RDW (11.5-15.5) % Lymphocytes # (1.0-4.8) k/uL Lymphocytes # (Manual) (1.0-4.8) k/uL Creatinine 0.62 L (0.66-1.25) mg/dL Glucose 120 H (74-99) mg/dL Total Protein (6.3-8.2) g/dL Assessment and Plan Assessment: Impression Sigmoid colon cancer as evident colonoscopy Large Gallstones Robotic cholecystectomy with robotic low anterior resection done on August 27 Acute cholecystitis with cystic duct obstruction confirmed with firefly Iron deficiency anemia Known coronary artery disease with prior history of coronary artery bypass grafting 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 Tracy Lechuga nurse practitioner acting as scribe for signing physician. <Ascencion,Karen N - Last Filed: 08/28/17 17:14> Objective - Vital Signs Vital signs: Vital Signs Temp 98.9 F 08/28/17 14:52 Pulse 56 L 08/28/17 14:52 Resp 16 08/28/17 14:52 BP 110/71 08/28/17 14:52 Pulse Ox 98 08/28/17 14:52 Intake & Output 08/27/17 08/28/17 08/28/17 18:59 06:59 18:59 Intake Total 3100 2350 250 Output Total 680 820 240 Balance 2420 1530 10 Intake: IV 3100 1000 Intake, IV Titration 1100 Amount D5-0.45% NaCl with KCl 1000 20Meq/l 1,000 ml @ 125 mls/hr IV .Q8H [facility] Rx#: [id number] metroNIDAZOLE-NS PMX 500 100 mg In Saline 1 100ml.bag @ 100 mls/hr IVPB Q6HR [facility] Rx#:[id number] Oral 250 250 Output: Drainage 120 240 Right Lower Abdomen 120 240 Urine 650 700 Estimated Blood Loss 30 Other: Voiding Method Indwelling Catheter Indwelling Catheter - Labs CBC & Chem 7: 08/28/17 06:25 08/28/17 06:25 Labs: Abnormal Lab Results - Last 24 Hours (Table) 08/28/17 08/28/17 08/28/17 Range/Units 06:25 06:25 06:25 RBC 3.64 L (4.30-5.90) m/uL Hgb 7.6 L (13.0-17.5) gm/dL Hct 26.3 L (39.0-53.0) % MCV 72.3 L (80.0-100.0) fL MCH 21.0 L (25.0-35.0) pg MCHC 29.0 L (31.0-37.0) g/dL RDW 17.4 H (11.5-15.5) % Lymphocytes # 0.6 L (1.0-4.8) k/uL Creatinine 0.62 L (0.66-1.25) mg/dL Glucose 120 H (74-99) mg/dL Iron 14 L (65-175) ug/dL Iron Saturation 3.54 L (15.00-50.00) Ferritin 8.7 L (22.0-322.0) ng/mL Assessment and Plan Plan: He is doing very well. Remove chinchilla and epidural tomorrow. Results of pathology described. Will need close yearly colonoscopy. Also will need follow-up of right groin aneurysm as outpatient. Plan for discharge tomorrow. Restart Xarelto after 1st bowel movement.
[2017-08-28] MEDS ORDERED: diphenhydrAMINE 50 MG/ML 1 ML VIAL IVP PRN (11:09)
[2017-08-28 16:25] LABS: Iron Saturation 3.54 (15.00-50.00)
[2017-08-28] MEDS: LACTATED RINGERS 1,000 ML IV SCH (21:21)
[2017-08-29] MEDS: D5-0.45% NACL WITH KCL 20MEQ/L 1,000 ML IV SCH ×2 (04:40→20:19)
[2017-08-29 07:13] LABS: Anisocytosis Slight; Basophils % (A) 0 %; Eosinophils % (A) 0 %; HCT 28.8 % (39.0-53.0); HGB 8.3 gm/dL (13.0-17.5); Hypochromasia Marked; Lymphocytes % (A) 16 %; MCH 21.1 pg (25.0-35.0); MCV 72.8 fL (80.0-100.0); Mean Platelet Volume 7.5; Microcytosis Moderate; Monocytes # (A) 0.5 k/uL (0-1.0); Monocytes % (A) 8 %; Neutrophils # (A) 4.4 k/uL (1.3-7.7); Neutrophils % (A) 71 %; Platelet Count 239 k/uL (150-450); RBC 3.95 m/uL (4.30-5.90); RDW 17.6 % (11.5-15.5); WBC 6.1 k/uL (3.8-10.6)
[2017-08-29 07:29] LABS: Anion Gap 7 mmol/L; Blood Urea Nitrogen 9 mg/dL (9-20); Calcium 8.6 mg/dL (8.4-10.2); Carbon Dioxide 27 mmol/L (22-30); Chloride 104 mmol/L (98-107); Glucose 85 mg/dL (74-99); Potassium 4.2 mmol/L (3.5-5.1); Sodium 138 mmol/L (137-145)
[2017-08-29] MEDS: METOPROLOL TARTRATE 50 MG TAB PO SCH (10:11)
[2017-08-29] MEDS: ALVIMOPAN 12 MG CAPSULE PO SCH (10:11)
[2017-08-29] MEDS: PANTOPRAZOLE 40 MG TABLET PO SCH (10:11)
[2017-08-29] MEDS: HEPARIN SODIUM,PORCINE 5,000 UNIT/ML 1 ML VIAL SQ SCH (10:11)
[2017-08-29] MEDS: LISINOPRIL 10 MG TAB PO SCH (10:11)
--- NOTE | 2017-08-29 10:20 | P.PN ---
Progress Note - Text Anesthesia POD 2. Status Post robotic-assisted laparoscopic cholecystectomy and low anterior resection under general endotracheal anesthesia with an epidrual catheter placed at T11 12 for post surgical pain releif. VAS (0, 4) with Ropivicaine 0.16 % and Dilaudid 20 mcg / cc running at 8 cc / hr. Lower extremity strength (4/4). No sedation. Site looks OK.
[2017-08-29] MEDS: SODIUM FERRIC GLUCONAT-SUCROSE 125 MG in SODIUM CHLORIDE 0.9% 100 ML IVPB SCH (11:45)
[2017-08-29] MEDS: HYDROcodone/APAP 5-325MG 1 EACH TAB PO PRN ×2 (15:07→20:35)
[2017-08-29 19:32] VITALS: BP 112/74; PULSE 67; RESP 16; TEMP 97.1
--- NOTE | 2017-08-29 19:50 | P.PN ---
Subjective Progress Note Date: 08/29/17 He had 2 bowel movements and passed flatus. No abdominal pain. He urinated on his own. "I feel great!" Objective - Vital Signs Vital signs: Vital Signs Temp 97.1 F L 08/29/17 19:15 Pulse 67 08/29/17 19:15 Resp 16 08/29/17 19:15 BP 112/74 08/29/17 19:15 Pulse Ox 98 08/29/17 19:15 Intake & Output 08/29/17 08/29/17 08/30/17 06:59 18:59 06:59 Intake Total 730 600 Output Total 2830 2730 75 Balance -2100 -2130 -75 Weight 97.522 kg 97.522 kg Intake: Intake, IV Titration 250 Amount D5-0.45% NaCl with KCl 250 20Meq/l 1,000 ml @ 125 mls/hr IV .Q8H [facility] Rx#: [id number] Oral 480 600 Output: Drainage 530 480 75 Right Lower Abdomen 530 480 75 Urine 2300 2250 Uretheral (Vazquez) 1000 2250 Other: Voiding Method Indwelling Catheter Indwelling Catheter # Voids 1 1 # Bowel Movements 1 - Exam GENERAL: Well developed and in no acute distress. Pleasant. HEENT: No sclera icterus. Extraocular movements grossly intact. Moist buccal mucosa. Head is atraumatic, normocephalic. Hears conversational speech. No nasal drainage. NECK: Supple without lymphadenopathy. No JV distention. CHEST: Non-labored respirations and equal bilateral excursions. CARDIOVASCULAR: Irregular rate and rhythm. Palpable 2+ radial pulses. ABDOMEN: Soft. Nondistended. No peritonitis. Dressing clean and intact. Minimal incisional tenderness. MUSCULOSKELETAL: No clubbing, cyanosis or edema. NEUROLOGIC: No focal or lateralizing signs. PSYCH: Appropriate affect. Alert and oriented to person, place and time. SKIN: Good skin turgor. Well perfused. - Labs CBC & Chem 7: 08/29/17 06:37 08/29/17 06:37 Labs: Abnormal Lab Results - Last 24 Hours (Table) 08/29/17 08/29/17 Range/Units 06:37 06:37 RBC 3.95 L (4.30-5.90) m/uL Hgb 8.3 L (13.0-17.5) gm/dL Hct 28.8 L (39.0-53.0) % MCV 72.8 L (80.0-100.0) fL MCH 21.1 L (25.0-35.0) pg MCHC 29.0 L (31.0-37.0) g/dL RDW 17.6 H (11.5-15.5) % Creatinine 0.60 L (0.66-1.25) mg/dL Assessment and Plan (1) Cancer of sigmoid colon Status: Acute Code(s): C18.7 - MALIGNANT NEOPLASM OF SIGMOID COLON SNOMED Code(s): 463119309 Plan: 1. Discharge home with AMY 2. Liquid diet for home 3. Follow up in the office next week.
--- NOTE | 2017-08-29 19:51 | P.DS ---
Providers Date of admission: 08/27/17 11:37 Expected date of discharge: 08/29/17 Attending physician: Joi Vegas Primary care physician: Titi Workman MD - Discharge Diagnosis(es) (1) Cancer of sigmoid colon Status: Acute (2) Chronic anticoagulation Status: Acute (3) Diverticulitis Status: Acute (4) Diverticulosis Status: Acute (5) Atrial fibrillation Status: Acute (6) History of Anders-en-Y gastric bypass Status: Acute (7) Calculus of cystic duct with acute cholecystitis Status: Acute Hospital Course: POSTOPERATIVE DIAGNOSES: 1. Sigmoid colon cancer 2. Sigmoid diverticulosis. 3. History of rectal bleeding 4. Symptomatic gallstones 5. Iron deficiency anemia 6. History of gastric bypass 7. Chronic anticoagulant therapy 8. Atrial fibrillation 9. Ischemic cardiomyopathy 10. Hyperlipidemia 11. Coronary artery disease 12. History of skin cancer, basal cell carcinoma 13. History of TIA 14. Acute cholecystitis with cystic duct obstruction 15. Right iliac aneurysm COURSE: Patient is a 71-year-old gentleman diagnosed with sigmoid colon cancer. A robotic-assisted approach of low anterior resection including cholecystectomy was performed. Intraoperative findings were consistent with acute cholecystitis with cystic duct obstruction. Incidental finding of right iliac aneurysm was also confirmed. Perioperatively, his pain was well controlled and tolerating diet. Prior to discharge, he was passing flatus and having bowel movements. AMY drain was maintained with serous output. Prior to discharge, discharge instructions were verbalized. Patient will be closely monitored with follow-up in the office in one week. Procedures: OPERATION: 1. Robotic-assisted daVinci Xi sigmoid colectomy with low anterior resection using 29 mm ILS 2. Robotic-assisted daVinci Xi cholecystectomy with FIREFLY 3. Intraoperative sigmoidoscopy 4. Placement of round #19 drain pelvis Anesthesia: GETA, local, epidural Estimated Blood Loss (ml): 30 Pathology: other (gallbladder, low anterior resection, anastomosis) Condition: stable Disposition: floor COMPLICATIONS: None. Operative Findings: 1. Tumor confirmed between 15 to 20 cm from the anal verge 2. Low anterior resection performed. 3. Redundant sigmoid colon 4. Anterior colotomy along descending colon for EEA 29 mm anastomosis 5. Anastomosis with residual tumor resected in EEA 6. Intact donuts, proximal and distal 7. Acute cholecystitis with cystic duct obstruction confirmed with FIREFLY 8. Right iliac aneurysm identified 9. Intra-op colonoscope used to identify tumor resection Patient Condition at Discharge: Stable Plan - Discharge Summary Discharge Rx Participant: Yes New Discharge Prescriptions: New HYDROcodone/APAP 5-325MG [Ophir 5-325] 1 tab PO Q4HR PRN 3 Days #18 tab PRN Reason: Pain Continue Simvastatin [Zocor] 40 mg PO HS Rivaroxaban [Xarelto] 20 mg PO DAILY Calcium Citrate 500 mg PO TID Metoprolol Tartrate [Lopressor] 50 mg PO QAM Lisinopril [Zestril] 10 mg PO BID Aspirin [Adult Low Dose Aspirin EC] 81 mg PO DAILY Discontinued Vitamin A 10,000 Units 10,000 units PO QAM Omeprazole 40 mg PO DAILY #30 capsule. Multivitamin [Multivitamins Adult Gummies] 1 tab PO DAILY Discharge Medication List Simvastatin [Zocor] 40 mg PO HS 03/18/14 [History] Rivaroxaban [Xarelto] 20 mg PO DAILY 01/08/15 [History] Calcium Citrate 500 mg PO TID 01/15/15 [History] Metoprolol Tartrate [Lopressor] 50 mg PO QAM 03/17/15 [History] Lisinopril [Zestril] 10 mg PO BID 12/15/15 [History] Aspirin [Adult Low Dose Aspirin EC] 81 mg PO DAILY 08/22/17 [History] HYDROcodone/APAP 5-325MG [Ophir 5-325] 1 tab PO Q4HR PRN 3 Days #18 tab [Rx] Follow up Appointment(s)/Referral(s): Joi Vegas MD [STAFF PHYSICIAN] - 09/06/17 (Please call to confirm time) Patient Instructions/Handouts: Laparoscopic Bowel Resection (DC), Colectomy Diet (DC) Activity/Diet/Wound Care/Special Instructions: No lifting over 4 pounds in 4 weeks. AMY will be removed in the office. Sponge bath. Liquid diet. Start Xarelto this August 31 Discharge Disposition: HOME SELF-CARE
--- NOTE | 2017-09-02 11:32 | P.PN ---
Progress Note - Text Progress Note Date: 09/02/17 Follow-up discharge follow phone call performed. He reports "I feel great.". He is tolerating soft diet. He is passing moderate amount of flatus. No fevers or chills. Patient will follow-up in the office in 3-5 days.
--- NOTE | 2017-09-02 19:50 | P.OP ---
Date of Procedure: 08/27/17 Description of Procedure: SURGEON: WILBERTO BOWEN MD PREOPERATIVE DIAGNOSES: 1. Sigmoid colon cancer 2. Sigmoid diverticulosis. 3. History of rectal bleeding 4. Symptomatic gallstones 5. Iron deficiency anemia 6. History of gastric bypass 7. Chronic anticoagulant therapy 8. Atrial fibrillation 9. Ischemic cardiomyopathy 10. Hyperlipidemia 11. Coronary artery disease 12. History of skin cancer, basal cell carcinoma 13. History of TIA POSTOPERATIVE DIAGNOSES: 1. Sigmoid colon cancer 2. Sigmoid diverticulosis. 3. History of rectal bleeding 4. Symptomatic gallstones 5. Iron deficiency anemia 6. History of gastric bypass 7. Chronic anticoagulant therapy 8. Atrial fibrillation 9. Ischemic cardiomyopathy 10. Hyperlipidemia 11. Coronary artery disease 12. History of skin cancer, basal cell carcinoma 13. History of TIA 14. Acute cholecystitis with cystic duct obstruction 15. Right iliac aneurysm OPERATION: 1. Robotic-assisted daVinci Xi sigmoid colectomy with low anterior resection using 29 mm ILS 2. Robotic-assisted daVinci Xi cholecystectomy with FIREFLY 3. Intraoperative sigmoidoscopy 4. Placement of round #19 drain pelvis Anesthesia: GETA, local, epidural Estimated Blood Loss (ml): 30 Pathology: other (gallbladder, low anterior resection, anastomosis) Condition: stable Disposition: floor COMPLICATIONS: None. Operative Findings: 1. Tumor confirmed between 15 to 20 cm from the anal verge 2. Low anterior resection performed. 3. Redundant sigmoid colon 4. Anterior colotomy along descending colon for EEA 29 mm anastomosis 5. Anastomosis with residual tumor resected in EEA 6. Intact donuts, proximal and distal 7. Acute cholecystitis with cystic duct obstruction confirmed with FIREFLY 8. Right iliac aneurysm identified 9. Intra-op colonoscope used to identify tumor resection INDICATIONS: The patient is a 71-year-old male recently diagnosed with sigmoid colon cancer per colonoscopy. Additionally, he has a personal history of symptomatic cholelithiasis as identified on imaging and computed tomography scan. Metastatic workup was performed. Benefits and risks of surgical intervention was described in detail including infection, injury to the ureter, colostomy creation, possibility for additional surgery was discussed at length. Informed consent was obtained. All questions of the patient and family were answered. DESCRIPTION: Earlier the patient had undergone a bowel prep using the enhanced colon recovery program. The patient was transferred to the operating room and placed supine. After general induction, the abdomen was prepped and draped in standard sterile fashion. Ioban was placed along the abdomen to minimize any contamination of skin floor. A Vazquez catheter was placed. The patient was administered indocyanine green for his cholecystectomy portion of the case. After a timeout protocol was performed, attention was then brought to the left upper quadrant whereby a 0 degree 5 mm laparoscopic trocar entry was performed. The abdominal cavity was entered and insufflated to 15 mmHg pressure, which he tolerated well. Diagnostic laparoscopy confirmed moderately redundant sigmoid colon. The gallbladder was hydropic. The liver surface was unremarkable. Minimal adhesions were found along the upper abdomen from his previous gastric bypass surgery. The small bowel was unremarkable. No evidence of small bowel dilation or obstruction was found. Next a robotic 12-mm trocar was placed along the epigastrium 20 cm superior from the pelvis. Two 8 mm ports were placed along the right upper quadrant. Ports were placed 8 to 10 cm apart from each other including 15-20 cm away from the target anatomy of the left pelvis. The 5-mm port was exchanged for an 8 mm robotic port at the left upper quadrant. The robot was docked along the left lateral abdomen. The patient was repositioned in reverse Trendelenburg position. Using a grasper for arm 3, a grasper for arm 4, including hook cautery for arm 1 , and the robotic system was docked and primed as described. Instruments were interchanged by the export sales assistant including hook cautery, Bovie cautery and clip appliers. I had sat at the console. Adhesions were identified along the infundibulum of the gallbladder and addressed using hook cautery. The gallbladder fundus was retracted over the dome of the liver. Initial attention was brought to the infundibulum which was gently retracted in the inferior lateral approach. Using a grasper, the cystic duct including the cystic artery was carefully skeletonized. The gallbladder was extremely large in size prohibiting grasping the gallbladder for retraction. FIREFLY was used to identify the cystic artery and cystic structures. Findings confirmed cystic duct obstruction as the gallbladder had absence of indocyanine green. Moderate dissection was used to free the infundibulum from the cystic structures. Large PLASTIC clips were used throughout the entire case. Using a clip sustainability project manager 2 clips were placed proximally, and 1 clip was placed distally along the cystic duct and then cauterized with the cautery. Again care was taken to avoid any injury to the biliary tree as the common bile duct was clearly visualized during this portion of dissection. Next, the cystic artery was similarly clipped and cauterized. Electro-Bovie cautery was used to remove the gallbladder from the hepatic fossa. Hemostasis was checked and found to be adequate. The robot was undocked and re-docked for the pelvis. The patient was placed in steep Trendelenburg position. Using atraumatic graspers and vessel sealer, the robotic system was docked and primed as described. Instruments were interchanged by the export sales assistant including scissors, needle jinriksha driver , robotic stapler and vessel sealer. The robot stapler was prepared along the right lateral abdominal wall. The stapler 12-mm port was arranged along the right lateral abdominal wall. Next, attention was brought to identify the sigmoid colon. The previous ink dye was found into the deep pelvis. A stay suture using 3- 0 silk was placed along the anterior serosa of the redundant sigmoid colon. The sigmoid mesentery was mobilized using a vessel sealer whereby the distal sigmoid colon was marked and tagged. Using multiple fires of the robot stapler 45 mm green load, the proximal redundant sigmoid colon was divided. The mesentery of the sigmoid colon was mobilized towards the pelvic brim and sacral promontory using a vessel sealer. Next, the sigmoid colon was divided using the robotic stapler 45 mm green load. The rest of the sigmoid colon mesentery was mobilized using vessel sealer. The sigmoid mesentery was moderately bulky from his previous Chely ink. Additionally, the sigmoid colon was mobilized onto the colon to minimize injury to the ureters. To confirm resection of the sigmoid colon cancer, an intraoperative colonoscope was used. I went to the foot of the bed. The patient was frog legged and a colonoscope was entered along the rectum. At the proposed resection, tumor were still evident. I went back to the console to perform additional dissection into the pelvis. Circumferential dissection was performed to the distal and mid rectum involving the Chely ink and proposed specimen. Next, multiple fires of 45-mm green staple loads were used to resect the proximal rectum. Via the proximal segment of the descending colon, a longitudinal colotomy was performed. I re-scrubbed into the case. The robotic arms were undocked. A 29-mm anvil was placed after placing a suture along the anvil operations specialist. The shaft of the anvil was exited via the staple line and the anvil operations specialist was removed. I went to the foot of the bed to place the ILS stapler via the rectum. The anvil and stapler were mated for 1 minute. The doughnuts were intact on both sides. The donuts were inspected where the proximal anastomosis incorporated residual tumor. The distal donut was unremarkable. I went back to the console. The colotomy was oversewn using 3-0 silk. The colotomy along the anterior surface of the descending colon was closed using 45 mm blue stapler. All needles were removed from the abdominal cavity. The robot was undocked. I re-scrubbed into the case. Via the right upper quadrant port, the gallbladder was removed using 10 mm Endo Catch bag. The sigmoid colon was removed using a 15-mm Endo Catch bag. All sponges were removed from the abdominal cavity. The resected colon was brought out through the 12 mm trocar of the right upper quadrant after widening the skin incision to 3-cm. No contamination had occurred throughout this portion of the case. The fascial defect was oversewn using 0 Vicryl and a Alfonzo Gerardo. A round #19 drain was placed anterior to the anastomosis along the pelvis and exited via the epigastrium. A 2-0 nylon stitch was placed. Next all pneumoperitoneum was evacuated from the abdominal cavity. The 8-mm trocar sites were reapproximated using 4-0 Monocryl in an interrupted subcuticular fashion. Suture 3-0 Vicryl was used to reapproximate the subcutaneous tissue followed by 4-0 Monocryl in an interrupted subcuticular fashion. Local anesthetic was infiltrated to all wounds for postop analgesia. All incisions were also cleansed with diluted hydrogen peroxide. An Optifoam surgical dressing was placed over the epigastrium of the colon extraction site and drain site. A suction bulb was placed along the tubing. Liquid glue was applied to the rest of the skin incisions. The patient had tolerated the procedure well. The patient was extubated successfully. Intraoperative photos were reviewed with the patient's family who were overall pleased with the level of care. The patient was transferred to the postanesthesia care unit in stable condition. Upon awakening, the patient stated I feel very good.
== END 2017-08-29 20:58 | disposition home or self-care (01) | DRG 330 ==
LOC: 2ORMAIN 11:37 → 3SUR 20:52
PROVIDERS: ADMIT Surgery Plastic and Reconstructive Surgery; ATTEND Surgery Plastic and Reconstructive Surgery
PROC: 8E0W4CZ Robotic Assisted Procedure of Trunk Region, Percutaneous Endoscopic Approach (ICD-10-PCS; 2017-08-27)
PROC: 0DJD8ZZ Inspection of Lower Intestinal Tract, Via Natural or Artificial Opening Endoscopic (ICD-10-PCS; 2017-08-27)
PROC: 0DTN4ZZ Resection of Sigmoid Colon, Percutaneous Endoscopic Approach (ICD-10-PCS; principal; 2017-08-27 13:50)
PROC: 0FT44ZZ Resection of Gallbladder, Percutaneous Endoscopic Approach (ICD-10-PCS; 2017-08-27 13:50)
DX: C18.7 Malignant neoplasm of sigmoid colon (principal); Q43.8 Other specified congenital malformations of intestine; K80.47 Calculus of bile duct with acute and chronic cholecystitis with obstruction; I48.0 Paroxysmal atrial fibrillation; I72.3 Aneurysm of iliac artery; K57.30 Diverticulosis of large intestine without perforation or abscess without bleeding; I25.5 Ischemic cardiomyopathy; E78.2 Mixed hyperlipidemia; D50.9 Iron deficiency anemia, unspecified; I25.10 Atherosclerotic heart disease of native coronary artery without angina pectoris; K82.8 Other specified diseases of gallbladder; I10 Essential (primary) hypertension; E66.9 Obesity, unspecified; Z68.26 Body mass index [BMI] 26.0-26.9, adult; Z79.82 Long term (current) use of aspirin; Z79.01 Long term (current) use of anticoagulants; Z79.899 Other long term (current) drug therapy; Z96.643 Presence of artificial hip joint, bilateral; Z87.891 Personal history of nicotine dependence; Z85.828 Personal history of other malignant neoplasm of skin; Z86.73 Personal history of transient ischemic attack (TIA), and cerebral infarction without residual deficits; Z95.1 Presence of aortocoronary bypass graft; Z96.651 Presence of right artificial knee joint; Z98.84 Bariatric surgery status; Z80.8 Family history of malignant neoplasm of other organs or systems; Z82.49 Family history of ischemic heart disease and other diseases of the circulatory system; Z81.8 Family history of other mental and behavioral disorders
CPT/HCPCS: 80048; 80053; 82728; 83540; 83550; 85025; 86850; 86900; 86901; 88304; 88307; 88309

== ENCOUNTER → 2017-08-31 | Outpatient (CLI) | payer MEDICARE ==
[2017-08-31 12:38] LABS: Anisocytosis Slight; Basophils % (A) 0 %; Eosinophils % (A) 0 %; HGB 9.1 gm/dL (13.0-17.5); Hypochromasia Marked; Lymphocytes # (A) 0.8 k/uL (1.0-4.8); Lymphocytes % (A) 14 %; MCH 21.8 pg (25.0-35.0); MCHC 30.2 g/dL (31.0-37.0); MCV 72.3 fL (80.0-100.0); Mean Platelet Volume 7.7; Microcytosis Moderate; Monocytes # (A) 0.3 k/uL (0-1.0); Monocytes % (A) 6 %; Neutrophils % (A) 76 %; Platelet Count 224 k/uL (150-450); RBC 4.16 m/uL (4.30-5.90); WBC 5.2 k/uL (3.8-10.6)
== END | disposition home or self-care (01) ==
LOC: LABWHC1 11:48
PROVIDERS: ATTEND Surgery Plastic and Reconstructive Surgery
DX: C18.9 Malignant neoplasm of colon, unspecified (principal)
CPT/HCPCS: 36415; 85025; 87070; 87205

== ENCOUNTER 2017-10-04 10:36 | Emergency (ER) | payer MEDICARE ==
[2017-10-04] MEDS ORDERED: SODIUM CHLORIDE 0.9% 1,000 ML IV STA (11:35)
[2017-10-04 12:17] LABS: Appearance,Urine Cloudy (Clear); Bilirubin,Urine Negative (Negative); Blood,Urine Small (Negative); Color,Urine Yellow; Glucose,Urine (UA) Negative (Negative); Ketones,Urine Negative (Negative); Leukocyte Esterase,Urine Negative (Negative); Mucus,Urine Few /hpf; Nitrite,Urine Negative (Negative); PH, Urine 5.5 (5.0-8.0); Protein,Urine 1+ (Negative); RBC,Urine 15 /hpf (0-5); Specific Gravity,Urine 1.018 (1.001-1.035); Squamous Epithelial Cell,Urine <1 /hpf (0-4); WBC,Urine 3 /hpf (0-5)
[2017-10-04 12:21] LABS: Anisocytosis Moderate; HCT 28.8 % (39.0-53.0); HGB 8.9 gm/dL (13.0-17.5); Hypochromasia Marked; MCH 22.6 pg (25.0-35.0); MCV 72.9 fL (80.0-100.0); Mean Platelet Volume 6.8; Microcytosis Marked; Platelet Count 335 k/uL (150-450); RBC 3.96 m/uL (4.30-5.90); RDW 20.1 % (11.5-15.5); WBC 7.4 k/uL (3.8-10.6)
[2017-10-04 12:25] LABS: ALT 32 U/L (21-72); AST 26 U/L (17-59); Albumin 3.1 g/dL (3.5-5.0); Alkaline Phosphatase 83 U/L (38-126); Anion Gap 8 mmol/L; Blood Urea Nitrogen 14 mg/dL (9-20); Calcium 8.7 mg/dL (8.4-10.2); Carbon Dioxide 24 mmol/L (22-30); Chloride 105 mmol/L (98-107); Glucose 103 mg/dL (74-99); Magnesium 1.9 mg/dL (1.6-2.3); Phosphorus 3.6 mg/dL (2.5-4.5); Sodium 137 mmol/L (137-145); Total Bilirubin 0.4 mg/dL (0.2-1.3); Total Protein 6.2 g/dL (6.3-8.2)
[2017-10-04 12:49] VITALS: BP 130/95; PULSE 94; RESP 17; TEMP 98.8
--- NOTE | 2017-10-04 12:53 | ED ---
General Adult HPI - General Chief complaint: Recheck/Abnormal Lab/Rx Stated complaint: Muscle/Joint Pain Time Seen by Provider: 10/04/17 10:49 Source: patient, RN notes reviewed, old records reviewed Mode of arrival: ambulatory Limitations: no limitations - History of Present Illness Initial comments: This is a 71-year-old male the ER for evaluation per patient with persistent bowel pain mild nausea no vomiting. Patient recently did have surgery, no blood in his stool. No vomiting of blood. Patient denies any fever cough or congestion. - Related Data Home Medications Medication Instructions Recorded Confirmed Simvastatin [Zocor] 40 mg PO HS 03/18/14 10/04/17 Rivaroxaban [Xarelto] 20 mg PO HS 01/08/15 10/04/17 Metoprolol Tartrate [Lopressor] 50 mg PO QAM 03/17/15 10/04/17 Lisinopril [Zestril] 10 mg PO DAILY 12/15/15 10/04/17 Aspirin [Adult Low Dose Aspirin EC] 81 mg PO DAILY 08/22/17 10/04/17 Alive Multivitamin 1 tab PO DAILY 10/04/17 10/04/17 Omeprazole [PriLOSEC] 40 mg PO DAILY 10/04/17 10/04/17 Vitamin A 8,000 unit PO DAILY 10/04/17 10/04/17 Allergies Allergy/AdvReac Type Severity Reaction Status Date / Time No Known Allergies Allergy Verified 10/04/17 11:27 Review of Systems ROS Statement: Those systems with pertinent positive or pertinent negative responses have been documented in the HPI. ROS Other: All systems not noted in ROS Statement are negative. Past Medical History Past Medical History: Atrial Fibrillation, Coronary Artery Disease (CAD), Cancer , CVA/TIA, Hyperlipidemia, Hypertension Additional Past Medical History / Comment(s): COLON CA, TIA 2008, SKIN CA- BASAL CELL 2013 History of Any Multi-Drug Resistant Organisms: None Reported Past Surgical History: Back Surgery, Bowel Resection, Cholecystectomy, Coronary Bypass/CABG, Joint Replacement, Orthopedic Surgery Additional Past Surgical History / Comment(s): 01-15-15 TOTAL RT KNEE ARTHROPLASTY.DANA HIP REPLACEMENT, KNEE LEFT ARTHROSCOPY, DANA ACHILLIS TENDON REPAIR, CABG-4 VESSELS, MOHS SKIN CANCER SURGERY, BRUNO-EN-Y GASTRIC BYPASS ( JUNE 2014), bowel resection for CA august 2017 Past Anesthesia/Blood Transfusion Reactions: Postoperative Nausea & Vomiting ( PONV) Past Psychological History: No Psychological Hx Reported Smoking Status: Never smoker Past Alcohol Use History: Rare Past Drug Use History: None Reported - Past Family History Father Family Medical History: Cancer, Myocardial Infarction ([place]) Additional Family Medical History / Comment(s): SKIN CA, in sleep 73 Mother Family Medical History: Memory Impairment General Exam Limitations: no limitations General appearance: alert, in no apparent distress Head exam: Present: atraumatic, normocephalic, normal inspection Eye exam: Present: normal appearance, PERRL, EOMI. Absent: scleral icterus, conjunctival injection, periorbital swelling ENT exam: Present: normal exam, mucous membranes moist Neck exam: Present: normal inspection. Absent: tenderness, meningismus, lymphadenopathy Respiratory exam: Present: normal lung sounds bilaterally. Absent: respiratory distress, wheezes, rales, rhonchi, stridor Cardiovascular Exam: Present: regular rate, normal rhythm, normal heart sounds. Absent: systolic murmur, diastolic murmur, rubs, gallop, clicks GI/Abdominal exam: Present: soft, normal bowel sounds. Absent: distended, tenderness, guarding, rebound, rigid Extremities exam: Present: normal inspection, full ROM, normal capillary refill. Absent: tenderness, pedal edema, joint swelling, calf tenderness Back exam: Present: normal inspection Neurological exam: Present: alert, oriented X3, CN II-XII intact Psychiatric exam: Present: normal affect, normal mood Skin exam: Present: warm, dry, intact, normal color. Absent: rash Course Vital Signs 10/04/17 10/04/17 10:45 12:48 Temperature 98.9 F 98.8 F Pulse Rate 100 94 Respiratory 18 17 Rate Blood Pressure 122/72 130/95 O2 Sat by Pulse 100 99 Oximetry Medical Decision Making - Medical Decision Making 71 male the ER with nonspecific abdominal pain. No significant disease found. Labwork normal. Patient is in no acute distress, patient will be discharged home - Lab Data Result diagrams: 10/04/17 11:55 10/04/17 11:55 Lab Results 10/04/17 10/04/17 10/04/17 Range/Units 11:55 11:55 11:55 WBC 7.4 (3.8-10.6) k/uL RBC 3.96 L (4.30-5.90) m/uL Hgb 8.9 L (13.0-17.5) gm/dL Hct 28.8 L (39.0-53.0) % MCV 72.9 L (80.0-100.0) fL MCH 22.6 L (25.0-35.0) pg MCHC 31.0 (31.0-37.0) g/dL RDW 20.1 H (11.5-15.5) % Plt Count 335 (150-450) k/uL Neutrophils % (Manual) 84 % Lymphocytes % (Manual) 5 % Monocytes % (Manual) 10 % Basophils % (Manual) 1 % Neutrophils # (Manual) 6.22 (1.3-7.7) k/uL Lymphocytes # (Manual) 0.37 L (1.0-4.8) k/uL Monocytes # (Manual) 0.74 (0-1.0) k/uL Basophils # (Manual) 0.07 (0-0.2) k/uL Nucleated RBCs 0 (0-0) /100 WBC Hypochromasia Marked Poikilocytosis (manual Present Anisocytosis Moderate Microcytosis Marked Sodium 137 (137-145) mmol/L Potassium 4.0 (3.5-5.1) mmol/L Chloride 105 (98-107) mmol/L Carbon Dioxide 24 (22-30) mmol/L Anion Gap 8 mmol/L BUN 14 (9-20) mg/dL Creatinine 0.50 L (0.66-1.25) mg/dL Est GFR (CKD-EPI)AfAm >90 (>60 ml/min/1.73 sqM) Est GFR (CKD-EPI)NonAf >90 (>60 ml/min/1.73 sqM) Glucose 103 H (74-99) mg/dL Calcium 8.7 (8.4-10.2) mg/dL Phosphorus 3.6 (2.5-4.5) mg/dL Magnesium 1.9 (1.6-2.3) mg/dL Total Bilirubin 0.4 (0.2-1.3) mg/dL AST 26 (17-59) U/L ALT 32 (21-72) U/L Alkaline Phosphatase 83 (38-126) U/L Total Creatine Kinase 32 L (55-170) U/L CK-MB (CK-2) 0.7 (0.0-2.4) ng/mL CK-MB (CK-2) Rel Index 2.2 Total Protein 6.2 L (6.3-8.2) g/dL Albumin 3.1 L (3.5-5.0) g/dL Urine Color Urine Appearance (Clear) Urine pH (5.0-8.0) Ur Specific [place] (1.001-1.035) Urine Protein (Negative) Urine Glucose (UA) (Negative) Urine Ketones (Negative) Urine Blood (Negative) Urine Nitrite (Negative) Urine Bilirubin (Negative) Urine Urobilinogen (<2.0) mg/dL Ur Leukocyte Esterase (Negative) Urine RBC (0-5) /hpf Urine WBC (0-5) /hpf Ur Squamous Epith Cells (0-4) /hpf Urine Mucus (None) /hpf 10/04/17 Range/Units 11:55 WBC (3.8-10.6) k/uL RBC (4.30-5.90) m/uL Hgb (13.0-17.5) gm/dL Hct (39.0-53.0) % MCV (80.0-100.0) fL MCH (25.0-35.0) pg MCHC (31.0-37.0) g/dL RDW (11.5-15.5) % Plt Count (150-450) k/uL Neutrophils % (Manual) % Lymphocytes % (Manual) % Monocytes % (Manual) % Basophils % (Manual) % Neutrophils # (Manual) (1.3-7.7) k/uL Lymphocytes # (Manual) (1.0-4.8) k/uL Monocytes # (Manual) (0-1.0) k/uL Basophils # (Manual) (0-0.2) k/uL Nucleated RBCs (0-0) /100 WBC Hypochromasia Poikilocytosis (manual Anisocytosis Microcytosis Sodium (137-145) mmol/L Potassium (3.5-5.1) mmol/L Chloride (98-107) mmol/L Carbon Dioxide (22-30) mmol/L Anion Gap mmol/L BUN (9-20) mg/dL Creatinine (0.66-1.25) mg/dL Est GFR (CKD-EPI)AfAm (>60 ml/min/1.73 sqM) Est GFR (CKD-EPI)NonAf (>60 ml/min/1.73 sqM) Glucose (74-99) mg/dL Calcium (8.4-10.2) mg/dL Phosphorus (2.5-4.5) mg/dL Magnesium (1.6-2.3) mg/dL Total Bilirubin (0.2-1.3) mg/dL AST (17-59) U/L ALT (21-72) U/L Alkaline Phosphatase (38-126) U/L Total Creatine Kinase (55-170) U/L CK-MB (CK-2) (0.0-2.4) ng/mL CK-MB (CK-2) Rel Index Total Protein (6.3-8.2) g/dL Albumin (3.5-5.0) g/dL Urine Color Yellow Urine Appearance Cloudy (Clear) Urine pH 5.5 (5.0-8.0) Ur Specific [place] 1.018 (1.001-1.035) Urine Protein 1+ H (Negative) Urine Glucose (UA) Negative (Negative) Urine Ketones Negative (Negative) Urine Blood Small H (Negative) Urine Nitrite Negative (Negative) Urine Bilirubin Negative (Negative) Urine Urobilinogen 2.0 (<2.0) mg/dL Ur Leukocyte Esterase Negative (Negative) Urine RBC 15 H (0-5) /hpf Urine WBC 3 (0-5) /hpf Ur Squamous Epith Cells <1 (0-4) /hpf Urine Mucus Few H (None) /hpf Disposition Clinical Impression: Colon cancer, Anemia, Myalgia Disposition: HOME SELF-CARE Condition: Good Instructions: Musculoskeletal Pain (ED), Arthralgia (ED) Is patient prescribed a controlled substance at d/c from ED?: No Referrals: Titi Workman MD [Primary Care Provider] - 1-2 days
[2017-10-04 12:58] LABS: Basophils # (M) 0.07 k/uL (0-0.2); Lymphocytes # (M) 0.37 k/uL (1.0-4.8); Monocytes # (M) 0.74 k/uL (0-1.0); Neutrophils # (M) 6.22 k/uL (1.3-7.7); Neutrophils % (M) 84 %; Nucleated Red Blood Cells 0 /100 WBC (0-0); Total Cells Counted 100
[2017-10-04 12:59] LABS: Poikilocytosis (M) Present
[2017-10-04 13:07] LABS: Creatine Kinase MB 0.7 ng/mL (0.0-2.4)
== END 2017-10-04 13:28 | disposition home or self-care (01) ==
LOC: EC 10:36
DX: C18.9 Malignant neoplasm of colon, unspecified (principal); D64.9 Anemia, unspecified; M79.1 Myalgia; I48.91 Unspecified atrial fibrillation; I25.10 Atherosclerotic heart disease of native coronary artery without angina pectoris; E78.5 Hyperlipidemia, unspecified; I10 Essential (primary) hypertension; Z86.73 Personal history of transient ischemic attack (TIA), and cerebral infarction without residual deficits; Z85.828 Personal history of other malignant neoplasm of skin; Z80.8 Family history of malignant neoplasm of other organs or systems; Z98.890 Other specified postprocedural states; Z90.49 Acquired absence of other specified parts of digestive tract; Z95.1 Presence of aortocoronary bypass graft; Z96.643 Presence of artificial hip joint, bilateral; Z96.651 Presence of right artificial knee joint; Z98.84 Bariatric surgery status; Z79.01 Long term (current) use of anticoagulants; Z79.82 Long term (current) use of aspirin; Z79.899 Other long term (current) drug therapy
CPT/HCPCS: 36415; 80053; 81001; 82550; 82553; 83735; 84100; 85025; 87086; 96360; 96361; 99284

== ENCOUNTER → 2017-12-11 | Outpatient (CLI) | payer MEDICARE ==
[2017-12-11 19:11] LABS: Iron Saturation 4.5 (15.00-50.00)
== END | disposition home or self-care (01) ==
LOC: LABWHC1 12:02
PROVIDERS: ATTEND Surgery Plastic and Reconstructive Surgery
DX: C18.9 Malignant neoplasm of colon, unspecified (principal)
CPT/HCPCS: 36415; 82728; 83540; 83550

== ENCOUNTER 2018-02-20 08:09 | Day surgery (SDC) | payer MEDICARE ==
[2018-02-15 16:12] VITALS: BMI 24.9
[~2018-02-20 08:09] MED LIST changes: -ACETAMINOPHEN TAB 500 MG TAB PO ONE; -Antibiotics per Pharmacy 1 EACH MISC MISCELLANE PRN; -DEXAMETHASONE SOD PHOSPHATE 10 MG/ML 1 ML VIAL IV ONE; -HEPARIN SODIUM,PORCINE 5,000 UNIT/ML 1 ML VIAL SQ ONE; -HYDROmorphone 0.5 MG/0.5 ML SYRINGE IVP PRN; +LACTATED RINGERS 1,000 ML IV SCH; +LIDOCAINE 1% 20 ML VIAL (10MG/ML) FOR IV START INTRADERMA PRN; -MIDAZOLAM 2 MG/2 ML VIAL IV PRN; -ONDANSETRON 4 MG/2 ML VIAL IVP ONE; -ceFAZolin IN SWFI 2 GM/20 ML SYRINGE IVP ONE; -metroNIDAZOLE-NS PMX 500 MG in SALINE 1 100ML.BAG IVPB ONE
--- NOTE | 2018-02-20 08:14 | P.GSHP ---
History of Present Illness H&P Date: 02/20/18 CHIEF COMPLAINT: Anemia and colon cancer HISTORY OF PRESENT ILLNESS: The patient is a 72-year-old male who presents with anemia and colon cancer. Upper and lower endoscopy were offered for further evaluation and management. PAST MEDICAL HISTORY: Please see list. PAST SURGICAL HISTORY: Please see list. MEDICATIONS: Please see list. ALLERGIES: Please see list. SOCIAL HISTORY: No illicit drug use FAMILY HISTORY: No reports of Crohn disease or ulcerative colitis. REVIEW OF ORGAN SYSTEMS: CONSTITUTIONAL: No reports of fevers or chills. GI: Denies any blood in stools or constipation. PHYSICAL EXAM: VITAL SIGNS: Stable GENERAL: Well-developed pleasant in no acute distress. HEENT: No scleral icterus. Extraocular movements grossly intact. Moist buccal mucosa. NECK: Supple without lymphadenopathy. CHEST: Unlabored respirations. Equal bilateral excursions. CARDIOVASCULAR: Regular rate and rhythm. Distal 2+ pulses. ABDOMEN: Soft, nondistended. MUSCULOSKELETAL: No clubbing, cyanosis, or edema. ASSESSMENT: 1. Anemia 2. Colon screen. PLAN: 1. Recommend proceeding with an upper and lower endoscopy Past Medical History Past Medical History: Atrial Fibrillation, Coronary Artery Disease (CAD), Cancer , CVA/TIA, Hyperlipidemia, Hypertension Additional Past Medical History / Comment(s): 08/27 COLON CA, TIA 2008, SKIN CA- BASAL CELL 2013 History of Any Multi-Drug Resistant Organisms: None Reported Past Surgical History: Back Surgery, Bowel Resection, Cholecystectomy, Coronary Bypass/CABG, Joint Replacement, Orthopedic Surgery Additional Past Surgical History / Comment(s): TOTAL RT KNEE ARTHROPLASTY.DANA HIP REPLACEMENT, KNEE LEFT ARTHROSCOPY, DANA ACHILLIS TENDON REPAIR, CABG-4 VESSELS, MOHS SKIN CANCER SURGERY, BRUNO-EN-Y GASTRIC BYPASS (JUNE 2014), bowel resection for CA august 2017 Past Anesthesia/Blood Transfusion Reactions: Postoperative Nausea & Vomiting ( PONV) Smoking Status: Never smoker - Past Family History Father Family Medical History: Cancer, Myocardial Infarction ([place]) Additional Family Medical History / Comment(s): SKIN CA, in sleep 73 Mother Family Medical History: Memory Impairment Medications and Allergies Home Medications Medication Instructions Recorded Confirmed Type Simvastatin [Zocor] 40 mg PO HS 03/18/14 02/15/18 History Rivaroxaban [Xarelto] 20 mg PO HS 01/08/15 02/15/18 History Metoprolol Tartrate [Lopressor] 50 mg PO QAM 03/17/15 02/15/18 History Lisinopril [Zestril] 10 mg PO DAILY 12/15/15 02/15/18 History Aspirin [Adult Low Dose Aspirin EC] 81 mg PO DAILY 08/22/17 02/15/18 History Alive Multivitamin 1 tab PO DAILY 10/04/17 02/15/18 History Omeprazole [PriLOSEC] 40 mg PO DAILY 10/04/17 02/15/18 History Furosemide [Lasix] 20 mg PO DAILY 12/25/17 02/15/18 History Allergies Allergy/AdvReac Type Severity Reaction Status Date / Time No Known Allergies Allergy Verified 02/15/18 16:07
[2018-02-20 09:13] VITALS: RESP 16; TEMP 97
[2018-02-20] MEDS ORDERED: PROPOFOL 10 MG/ML 20 ML VIAL IV ONE (09:33)
[2018-02-20] MEDS ORDERED: LIDOCAINE 1% INJ 10MG/ML (20 ML MDV) ONE (09:33)
--- NOTE | 2018-02-20 10:23 | P.PCN ---
Date of Procedure: 02/20/18 Description of Procedure: PREOPERATIVE DIAGNOSIS: Sigmoid colon cancer history Pandiverticulosis POSTOPERATIVE DIAGNOSIS: Sigmoid colon cancer history Pandiverticulosis OPERATION: Colonoscopy to the ileocecal valve and appendiceal orifice. Colonoscopy with hot snare polypectomy SURGEON: Joi Vegas MD. ANESTHESIA: MAC. INDICATIONS: The patient is a 72-year-old male who presents with newly diagnosed sigmoid cancer status post resection 5 to 6 months ago. Benefits and risks were described and informed consent was obtained. DESCRIPTION OF PROCEDURE: The patient had undergone Gatorade, MiraLAX and Dulcolax prep. He had been brought into the operating room and laid in the left lateral decubitus position. After adequate intravenous sedation, the rectum was examined with 2% lidocaine jelly. No external hemorrhoids were encountered. The rectal tone was within normal limits. No lesions were palpated in the rectal vault. An Olympus colonoscope was advanced until the ileocecal valve and appendiceal orifice were clearly viewed. The prep was fair with visualization of the mucosal folds. The scope was removed with visualization of each mucosal fold. Moderate scattered diverticulosis was encountered. With the attention at the anastomosis at 15 cm from the anal verge, hyperemia and inflammation was confirmed. Residual Chely ink tattoo was found. Initial cold forceps biopsy followed by hot snare polypectomy was performed at the same site to evaluate for recurrence versus inflammation from diverticulitis. Retroflexion of the scope demonstrated no grade 1 internal hemorrhoids. The colon was desufflated. The patient had tolerated the procedure well. Withdrawal time was over 6 minutes. FINDINGS: No internal hemorrhoids No external hemorrhoids No arteriovenous malformations Severe diverticulosis Attention at anastomosis, 15 cm from anal verge, sigmoid colon - Snare polypectomy 15 cm from the anal verge, sigmoid colon - Cold forceps biopsy at 15 cm from the anal verge, lesion at sigmoid colon RECOMMENDATIONS: Repeat colonoscopy in 6 months, August 2018 Plan - Discharge Summary New Discharge Prescriptions: No Action Simvastatin [Zocor] 40 mg PO HS Rivaroxaban [Xarelto] 20 mg PO HS Metoprolol Tartrate [Lopressor] 50 mg PO QAM Lisinopril [Zestril] 10 mg PO DAILY Aspirin [Adult Low Dose Aspirin EC] 81 mg PO DAILY Omeprazole [PriLOSEC] 40 mg PO DAILY Alive Multivitamin 1 tab PO DAILY Furosemide [Lasix] 20 mg PO DAILY Discharge Medication List Simvastatin [Zocor] 40 mg PO HS 03/18/14 [History] Rivaroxaban [Xarelto] 20 mg PO HS 01/08/15 [History] Metoprolol Tartrate [Lopressor] 50 mg PO QAM 03/17/15 [History] Lisinopril [Zestril] 10 mg PO DAILY 12/15/15 [History] Aspirin [Adult Low Dose Aspirin EC] 81 mg PO DAILY 08/22/17 [History] Alive Multivitamin 1 tab PO DAILY 10/04/17 [History] Omeprazole [PriLOSEC] 40 mg PO DAILY 10/04/17 [History] Furosemide [Lasix] 20 mg PO DAILY 12/25/17 [History] Follow up Appointment(s)/Referral(s): Joi Vegas MD [STAFF PHYSICIAN] - 03/19/18 Patient Instructions/Handouts: Diverticulitis (DC), Diverticulitis Diet (DC) Activity/Diet/Wound Care/Special Instructions: HOLD Xarelto at least 48 hrs until no bleeding. May resume after Feb 23 Discharge Disposition: HOME SELF-CARE
[2018-02-20 10:40] VITALS: BP 115/75; PULSE 68
--- NOTE | 2018-03-07 10:49 | CDI ---
Outpatient Documentation Clarification Form Date: 03/07/18 CDS/Production Painter Name: Shahnaz Zapien Phone: If any questions, call Karol Hooker Carbonation Equipment Tender at [phone] Patient Name: Neil Munoz Admit Date: 02/20/18 Discharge Date: 02/20/18 ATTENTION: The [facility] Coding Staff appreciate your assistance in clarifying documentation. Please respond to the clarification below the line at the bottom and electronically sign. The [facility] Coding staff will review the response and follow-up if needed. Please note: Queries are made part of the Legal Health Record. If you have any questions, please contact the Carbonation Equipment Tender. Dear Dr. Vegas, Only the colonoscopy procedure is documented, yet there are multiple mentions of an EGD being performed. Please provide a detailed operative report of the EGD. Thank you for your kind consideration. PLEASE SEE EGD REPORT NOW ADDED... KM 03/07/18 @13:03 [facility]
--- NOTE | 2018-03-07 13:03 | P.PCN ---
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 INDICATIONS: The patient is a 72-year-old male who presents with a history of anemia and gastrointestinal bleed. Benefits and risks of the procedure were described. Informed consent was obtained. DESCRIPTION: The patient was brought into the endoscopy suite and laid in the left lateral decubitus position. After a timeout was confirmed, the procedure was initiated. An Olympus gastroscope was passed along the posterior oropharynx down to the distal esophagus where the squamocolumnar junction was unremarkable. The gastric pouch was entered. A gastrojejunal anastomosis was unremarkable and patent. The scope was advanced up to 60 cm from the incisors into the Anders limb. No gastrojejunal marginal ulcer was encountered. The GI tract was desufflated. The patient tolerated the procedure well. FINDINGS: Resolved gastrojejunal ulceration Widely patent gastrojejunal anastomosis RECOMMENDATIONS: Upper endoscopy as needed.
== END 2018-02-20 11:09 | disposition home or self-care (01) ==
LOC: ORWHC2ENDO 08:09
PROVIDERS: ATTEND Surgery Plastic and Reconstructive Surgery
DX: K63.5 Polyp of colon (principal); K57.30 Diverticulosis of large intestine without perforation or abscess without bleeding; Z85.038 Personal history of other malignant neoplasm of large intestine; Z90.49 Acquired absence of other specified parts of digestive tract; Z98.0 Intestinal bypass and anastomosis status; D64.9 Anemia, unspecified; I48.91 Unspecified atrial fibrillation; I25.10 Atherosclerotic heart disease of native coronary artery without angina pectoris; E78.5 Hyperlipidemia, unspecified; I10 Essential (primary) hypertension; Z95.1 Presence of aortocoronary bypass graft; Z79.01 Long term (current) use of anticoagulants; Z79.82 Long term (current) use of aspirin; Z79.899 Other long term (current) drug therapy; Z96.653 Presence of artificial knee joint, bilateral; Z96.643 Presence of artificial hip joint, bilateral; Z98.84 Bariatric surgery status; Z90.3 Acquired absence of stomach [part of]; Z86.73 Personal history of transient ischemic attack (TIA), and cerebral infarction without residual deficits; Z85.828 Personal history of other malignant neoplasm of skin
CPT/HCPCS: 88305; 45380; 43235; J2001; J2704; 45385

== ENCOUNTER → 2018-07-18 | Outpatient (CLI) | payer MEDICARE ==
--- NOTE | 2018-07-18 10:21 | P.PN ---
Subjective Progress Note Date: 07/18/18 DATE OF SERVICE: 07/18/2018 CHIEF COMPLAINT: Anemia HISTORY OF PRESENT ILLNESS: Neil Munoz is a 72-year-old male who is status post gastric bypass 07/06/[address] De La Cruz. He is 4 years out. He is doing very well. He has lost over 200 pounds. He is about to write a book. He has maintained his weight loss. Has dumping from too much sugar. He is eating well. He is going to support group at [facility]. He comes in with new concern of chronic anemia and occasional rectal bleeding. He is still on Xarelto. His previous weight was 425 pounds. Today he comes in 215 pounds from 221 pounds, 1 year ago. He has lost 6 pounds in 1 year. He has lost 210 pounds. [place] body weight 193 pounds. Percent excess weight loss is 91 %. Body mass index reduced from 54.6 down to 27.6. He is 22 pounds overweight. PAST MEDICAL HISTORY: 1. Morbid obesity. 2. Body mass index of 54.6, initial 3. Osteoarthritis of the knees. 4. Osteoarthritis of the hips. 5. Osteoarthritis of the lower back. 6. Obstructive sleep apnea, resolved 7. Hypertensive heart disease. 8. Basal cell skin cancer 9. Atrial fibrillation 10. Coronary artery disease 11. Cerebrovascular event with TIA 12. Diabetes mellitus type 2, resolved. 13. Hyperlipidemia 14. Gastroesophageal reflux disease 15. Diverticulosis PAST SURGICAL HISTORY: 1. Right knee replacement 2. Bilateral hip replacement 3. Left knee arthroscopy 4. Bilateral Achilles tendon repair 5. CABG 4 vessels 6. Mohs surgery for skin cancer removal 7. Gastric bypass, June 2014 8. Upper endoscopy 2014 9. Colonoscopy HOME MEDICATIONS: Home Medications Medication Instructions Recorded Confirmed Rivaroxaban [Xarelto] 20 mg PO HS 01/08/15 08/22/18 Metoprolol Tartrate [Lopressor] 50 mg PO BID 03/17/15 08/22/18 Lisinopril [Zestril] 10 mg PO BID 12/15/15 08/22/18 Aspirin [Adult Low Dose Aspirin EC] 81 mg PO DAILY 08/22/17 08/22/18 Alive Multivitamin 1 tab PO DAILY 10/04/17 08/22/18 Omeprazole [PriLOSEC] 40 mg PO DAILY 10/04/17 08/22/18 Furosemide [Lasix] 20 mg PO QAM 12/25/17 08/22/18 Atorvastatin [Lipitor] 20 mg PO HS 07/18/18 08/22/18 Calcium Citrate 500 mg PO TID 07/18/18 08/22/18 Potassium Chloride [Klor-Con 20 20 meq PO QAM 07/18/18 08/22/18 Packets] Vitamin A Acetate [Vitamin A] 10,000 unit SL DAILY 07/18/18 08/22/18 Previous Rx's Medication Instructions Recorded Omeprazole 40 mg PO DAILY #90 capsule. 07/18/18 Polyethylene Glycol 3350 [Miralax] 17 gm PO DAILY #255 packet 07/18/18 ALLERGIES: Denies. SOCIAL HISTORY: No active tobacco use. Remote tobacco abuse. He is with at bedside. FAMILY HISTORY: No family history of ulcerative colitis disease or Crohn's disease. Family history of morbid obesity. No lupus in the family. No reports of stomach or esophageal cancer. Family history of diabetes type 2. Coronary artery disease in family. REVIEW OF ORGAN SYSTEMS: CONSTITUTIONAL: His previous weight was 425 pounds. [place] body weight 193 pounds. Body mass index reduced from 54.6. HEENT: Denies any active troubles with vision or hearing. No troubles with swallowing. ENDOCRINE: Diabetes, resolved. No hypothyroidism. CARDIOVASCULAR: No reports of palpitations or heart attacks or chest pain. Past myocardial ischemia. Atrial fibrillation. RESPIRATORY: Has daytime somnolence, resolved. No asthma. No recent pneumonia. GI: Denies any bright red blood per rectum. No diarrhea or constipation. Has dark stools. History of diverticulosis. Past colon cancer. MUSCULOSKELETAL: Has lower back pain and joint pain, improved. Has osteoarthritis of the knees, improved. NEURO: No headaches. No seizure disorders. PSYCH: No depression or suicidal ideation. RHEUMATOLOGIC: No lupus. No rheumatoid arthritis. HEMATOLOGIC: History of chronic anticoagulant use. History of SKIN: No rash. Past skin cancer. PHYSICAL EXAM: VITAL SIGNS: Height 6 foot 2 inches, weight 215 pounds. BMI 27.6 Vital Signs Temp 98.6 F 07/18/18 10:04 Pulse 62 07/18/18 10:04 Resp BP 113/65 07/18/18 10:04 Pulse Ox GENERAL: Well-developed in no acute distress. Well-groomed. HEENT: No scleral icterus. Extraocular movements grossly intact. Hears conversational speech. No nasal drainage. NECK: Supple without lymphadenopathy. CHEST: Nonlabored respirations with equal bilateral excursions. CARDIOVASCULAR: Irregular rate and irregular rhythm. Distal 2+ pulses. ABDOMEN: Obese, soft, nontender, nondistended. MUSCULOSKELETAL: No clubbing, cyanosis. Gross strength 5/5 distal lower extre mities. No pre-tibial pitting edema. NEURO: No focal or lateralizing signs. Cranial nerves 2 through 12 grossly within normal limits. PSYCH: Appropriate affect. Alert and oriented to person, place and time. SKIN: Good skin turgor. Well perfused. Multiple ecchymoses along the skin over the forearms. ASSESSMENT: 1. Morbid obesity due to excess calories, resolved 2. Body mass index of 54.6 to 27.6 3. Osteoarthritis of the knees. 4. Osteoarthritis of the hips. 5. Osteoarthritis of the lower back. 6. Obstructive sleep apnea, resolved 7. Hypertensive heart disease, improved 8. Basal cell skin cancer 9. Atrial fibrillation 10. Coronary artery disease 11. Cerebrovascular event with TIA 12. Diabetes mellitus type 2, resolved. 13. Hyperlipidemia 14. Gastroesophageal reflux disease 15. Diverticulosis 16. Chronic iron deficiency anemia 17. Chronic anticoagulant use 18. History of gastric bypass 19. History of colon cancer 20. Chronic constipation PLAN: 1. Recommend re-check for colon cancer with colonoscopy Feb 2019 for colonoscopy 2. Recommend re-check for bariatric labs 3. Recommend iron infusions. 4. He is getting the Watchman procedure for his atrial fibrillation 5. Recommend prescribed Miralax for chronic constipation Objective - Labs CBC & Chem 7: 07/18/18 11:00 07/18/18 11:00
[2018-07-18 10:22] VITALS: BP 113/65; PULSE 62; TEMP 98.6; BMI 27.6
[2018-07-18 11:45] LABS: HCT 26.8 % (39.0-53.0); HGB 7.7 gm/dL (13.0-17.5); Hypochromasia Marked; MCH 24.3 pg (25.0-35.0); MCHC 28.8 g/dL (31.0-37.0); MCV 84.5 fL (80.0-100.0); Platelet Count 271 k/uL (150-450); Poikilocytosis Moderate; RBC 3.18 m/uL (4.30-5.90); RDW 14.3 % (11.5-15.5); WBC 4.8 k/uL (3.8-10.6)
[2018-07-18 12:05] LABS: INR 1.1 (<1.2); Partial Thromboplastin Time 28.3 sec (22.0-30.0); Prothrombin Time 11.8 sec (9.0-12.0)
[2018-07-18 17:22] LABS: ALT 28 U/L (10-49); AST 27 U/L (14-35); African American GFR (CKD) 99.9 (60.0-200.0); Albumin/Globulin Ratio 2.47 (1.60-3.17); Alkaline Phosphatase 76 U/L (41-126); BUN/Creat Ratio 16.67 Ratio (12.00-20.00); Carbon Dioxide 26.5 mmol/L (21.6-31.8); Chloride 110 mmol/L (96-109); Cholesterol 110 mg/dL (0-200); Globulin 1.7 g/dL (1.6-3.3); Glucose 85 mg/dL (70-110); Magnesium 2.1 mg/dL (1.5-2.4); Potassium 5.6 mmol/L (3.5-5.5); Sodium 141 mmol/L (135-145); Total Bilirubin 0.4 mg/dL (0.3-1.2); Total Protein 5.9 g/dL (6.2-8.2); Triglycerides <50.0 mg/dL (0.0-149.0); VLDL Calculation 9.98 mg/dL (5.00-40.00)
[2018-07-18 17:28] LABS: Vitamin D 25 Hydroxy 30.6 ng/mL (30.0-100.0)
[2018-07-18 17:52] LABS: Folate, Serum >24.0 ng/mL; Iron Saturation 3.76 (15.00-50.00)
[2018-07-18 17:54] LABS: Parathyroid Hormone Intact 79.5 pg/mL (14.0-72.0)
[2018-07-18 18:54] LABS: Hemoglobin A1C 5.5 % (4.0-6.0)
[2018-07-19 12:14] LABS: Zinc, Serum 68 ug/dL (60-130)
[2018-07-20 19:34] LABS: Selenium 128 mcg/L (63-160)
[2018-07-22 07:39] LABS: Vit B1(Thiamine) 76 ug/L (38-122)
[2018-07-22 08:32] LABS: Vitamin A 42 ug/dL (38-106)
== END | disposition home or self-care (01) ==
LOC: BARWHC3 09:27
PROVIDERS: ATTEND Surgery Plastic and Reconstructive Surgery
DX: Z48.815 Encounter for surgical aftercare following surgery on the digestive system (principal); E66.01 Morbid (severe) obesity due to excess calories; M17.0 Bilateral primary osteoarthritis of knee; M16.0 Bilateral primary osteoarthritis of hip; M47.816 Spondylosis without myelopathy or radiculopathy, lumbar region; I11.9 Hypertensive heart disease without heart failure; C44.91 Basal cell carcinoma of skin, unspecified; I48.91 Unspecified atrial fibrillation; I25.10 Atherosclerotic heart disease of native coronary artery without angina pectoris; G45.9 Transient cerebral ischemic attack, unspecified; E78.5 Hyperlipidemia, unspecified; K21.9 Gastro-esophageal reflux disease without esophagitis; K57.90 Diverticulosis of intestine, part unspecified, without perforation or abscess without bleeding; D50.9 Iron deficiency anemia, unspecified; E21.1 Secondary hyperparathyroidism, not elsewhere classified; E89.1 Postprocedural hypoinsulinemia; K90.9 Intestinal malabsorption, unspecified; E55.9 Vitamin D deficiency, unspecified; K76.9 Liver disease, unspecified; N19 Unspecified kidney failure; K50.90 Crohn's disease, unspecified, without complications; Z68.27 Body mass index [BMI] 27.0-27.9, adult; Z87.891 Personal history of nicotine dependence; Z85.038 Personal history of other malignant neoplasm of large intestine; Z98.84 Bariatric surgery status; Z79.01 Long term (current) use of anticoagulants; Z79.82 Long term (current) use of aspirin; Z79.899 Other long term (current) drug therapy
CPT/HCPCS: 84255; 84134; 84425; 80061; 80053; 82607; 82728; 82525; 82746; 83540; 83550; 83735; 84100; 84443; 84590; 84630; 85027; 85610; 85730; 82306; 83970; 83036; G0463; 99211

== ENCOUNTER → 2018-08-22 | Outpatient (CLI) | payer MEDICARE ==
[2018-08-22 09:19] VITALS: BP 129/80; PULSE 65; TEMP 97.9; BMI 26.8
--- NOTE | 2018-08-22 09:59 | P.PN ---
Subjective Progress Note Date: 08/22/18 HPI: He comes in after atrial fibrillation procedure to help with coming off his blood thinner. His Hgb has improved over 7.7. He had received iron infusions. He has intermittent blood in his stools. He has bloody bowel movements. ABDOMEN: ASSESSMENT: 1. Blood in stools 2. Status gastric bypass PLAN: 1. MyFitness pal 2. Plan to stop blood thinner 3. Fiber 30 grams daily 4. Follow up in 1 month Objective - Vital Signs Vital signs: Vital Signs Temp 97.9 F 08/22/18 09:16 Pulse 65 08/22/18 09:16 Resp BP 129/80 08/22/18 09:16 Pulse Ox Intake & Output 08/21/18 08/22/18 08/22/18 18:59 06:59 18:59 Weight 94.801 kg
== END ==
LOC: BARWHC3 09:02
PROVIDERS: ATTEND Surgery Plastic and Reconstructive Surgery
DX: K92.1 Melena (principal); Z98.84 Bariatric surgery status
CPT/HCPCS: 99211

== ENCOUNTER → 2018-10-15 | Outpatient (CLI) | payer MEDICARE ==
[2018-10-15 11:13] LABS: Anisocytosis Slight; HCT 31.3 % (39.0-53.0); HGB 9.7 gm/dL (13.0-17.5); Hypochromasia Marked; MCH 26.9 pg (25.0-35.0); MCV 86.8 fL (80.0-100.0); Mean Platelet Volume 7.4; Microcytosis Slight; Platelet Count 284 k/uL (150-450); Poikilocytosis Slight; RDW 18.3 % (11.5-15.5); WBC 5.2 k/uL (3.8-10.6)
[2018-10-15 11:43] LABS: Partial Thromboplastin Time 24.9 sec (22.0-30.0); Prothrombin Time 10.8 sec (9.0-12.0)
[2018-10-15 16:08] LABS: ALT 28 U/L (10-49); AST 28 U/L (14-35); African American GFR (CKD) 104.9 (60.0-200.0); Albumin/Globulin Ratio 2.21 (1.60-3.17); Alkaline Phosphatase 83 U/L (41-126); BUN/Creat Ratio 21.25 Ratio (12.00-20.00); Calcium 9.2 mg/dL (8.7-10.3); Chloride 110 mmol/L (96-109); Cholesterol 120 mg/dL (0-200); Globulin 1.9 g/dL (1.6-3.3); Glucose 98 mg/dL (70-110); Hemoglobin A1C 5.8 % (4.0-6.0); Phosphorus 3.9 mg/dL (2.4-5.1); Potassium 4.2 mmol/L (3.5-5.5); Sodium 144 mmol/L (135-145); Total Bilirubin 0.4 mg/dL (0.3-1.2); Total Protein 6.1 g/dL (6.2-8.2); Triglycerides <50.0 mg/dL (0.0-149.0); VLDL Calculation 9.98 mg/dL (5.00-40.00)
[2018-10-15 16:11] LABS: Vitamin D 25 Hydroxy 27.4 ng/mL (30.0-100.0)
[2018-10-15 16:13] LABS: Folate, Serum >24.0 ng/mL; Iron Saturation 5.26 (15.00-50.00)
[2018-10-16 12:08] LABS: Zinc, Serum 66 ug/dL (60-130)
[2018-10-16 13:43] LABS: Vit B1(Thiamine) 94 ug/L (38-122)
[2018-10-17 06:31] LABS: Vitamin A 40 ug/dL (38-106)
== END | disposition home or self-care (01) ==
LOC: LABWHC1 10:06
PROVIDERS: ATTEND Surgery Plastic and Reconstructive Surgery
DX: E66.01 Morbid (severe) obesity due to excess calories (principal); E21.1 Secondary hyperparathyroidism, not elsewhere classified; D50.8 Other iron deficiency anemias; E89.1 Postprocedural hypoinsulinemia; E44.0 Moderate protein-calorie malnutrition; E55.9 Vitamin D deficiency, unspecified; K76.9 Liver disease, unspecified; N19 Unspecified kidney failure; K50.90 Crohn's disease, unspecified, without complications
CPT/HCPCS: 36415; 80053; 80061; 82306; 82525; 82607; 82728; 82746; 83036; 83540; 83550; 83735; 83970; 84100; 84134; 84255; 84425; 84443; 84590; 84630; 85027; 85610; 85730

== ENCOUNTER 2018-12-12 10:12 | Day surgery (SDC) | payer MEDICARE ==
[2018-12-10 15:06] VITALS: BMI 25.7
--- NOTE | 2018-12-12 08:07 | P.GSHP ---
History of Present Illness H&P Date: 12/12/18 CHIEF COMPLAINT: Anemia and history of colon cancer HISTORY OF PRESENT ILLNESS: The patient is a 73-year-old male who presents with history of anemia as well as colon cancer. Upper and lower endoscopy were offered for further evaluation and management. PAST MEDICAL HISTORY: Please see list. PAST SURGICAL HISTORY: Please see list. MEDICATIONS: Please see list. ALLERGIES: Please see list. SOCIAL HISTORY: No illicit drug use FAMILY HISTORY: No reports of Crohn disease or ulcerative colitis. REVIEW OF ORGAN SYSTEMS: CONSTITUTIONAL: No reports of fevers or chills. PHYSICAL EXAM: VITAL SIGNS: Stable GENERAL: Well-developed pleasant in no acute distress. HEENT: No scleral icterus. Extraocular movements grossly intact. Moist buccal mucosa. NECK: Supple without lymphadenopathy. CHEST: Unlabored respirations. Equal bilateral excursions. CARDIOVASCULAR: Irregular rate and rhythm. Distal 2+ pulses. ABDOMEN: Soft, nondistended. MUSCULOSKELETAL: No clubbing, cyanosis, or edema. ASSESSMENT: 1. Anemia 2. Colon cancer PLAN: 1. Recommend proceeding with an upper and lower endoscopy Past Medical History Past Medical History: Atrial Fibrillation, Blood Disorder, Coronary Artery Disease (CAD), Cancer, CVA/TIA, Hyperlipidemia, Hypertension Additional Past Medical History / Comment(s): COLON CANCER-no chemo or radiation, TIA 2008, SKIN CA- BASAL CELL 2013, hx of anemia requiring iron infusions, diverticulitis History of Any Multi-Drug Resistant Organisms: None Reported Past Surgical History: Back Surgery, Bariatric Surgery, Bowel Resection, Chol ecystectomy, Coronary Bypass/CABG, Joint Replacement, Orthopedic Surgery Additional Past Surgical History / Comment(s): 01-15-15 TOTAL RT KNEE ARTHROPLASTY.DANA HIP REPLACEMENT, KNEE LEFT ARTHROSCOPY, DANA ACHILLIS TENDON REPAIR, CABG-4 VESSELS, MOHS SKIN CANCER SURGERY, BRUNO-EN-Y GASTRIC BYPASS (JUNE 2014), bowel resection for colon cancer performed in February 2018 , [facility] procedure 07-30-18 Past Anesthesia/Blood Transfusion Reactions: No Reported Reaction Smoking Status: Former smoker - Past Family History Father Family Medical History: Cancer, Myocardial Infarction ([place]) Additional Family Medical History / Comment(s): SKIN CA, in sleep 73 Mother Family Medical History: Memory Impairment Medications and Allergies Home Medications Medication Instructions Recorded Confirmed Type Metoprolol Tartrate [Lopressor] 50 mg PO BID 03/17/15 12/10/18 History Lisinopril [Zestril] 10 mg PO BID 12/15/15 12/10/18 History Aspirin [Adult Low Dose Aspirin EC] 81 mg PO DAILY 08/22/17 12/10/18 History Alive Multivitamin 1 tab PO DAILY 10/04/17 12/10/18 History Furosemide [Lasix] 20 mg PO MOWEFR 12/25/17 12/10/18 History Atorvastatin [Lipitor] 20 mg PO HS 07/18/18 12/10/18 History Calcium Citrate 500 mg PO TID 07/18/18 12/10/18 History Omeprazole 40 mg PO DAILY #90 capsule. 07/18/18 12/10/18 Rx Potassium Chloride [Klor-Con 20 20 meq PO MOWEFR 07/18/18 12/10/18 History Packets] Vitamin A Acetate [Vitamin A] 10,000 unit SL DAILY 07/18/18 12/10/18 History Clopidogrel [Plavix] 75 mg PO DAILY 12/10/18 12/10/18 History Pantoprazole Sodium [Protonix] 20 mg PO DAILY 12/10/18 12/10/18 History Allergies Allergy/AdvReac Type Severity Reaction Status Date / Time No Known Allergies Allergy Verified 12/10/18 14:58
[2018-12-12] MEDS ORDERED: MIDAZOLAM PF (FBP) 2 MG/2 ML VIAL IV ONE (10:46)
[2018-12-12] MEDS ORDERED: fentaNYL (PF) 50 MCG/ML 2 ML AMP IV ONE (10:47)
[2018-12-12] MEDS ORDERED: PROPOFOL 10 MG/ML 20 ML VIAL IV ONE (10:54)
[2018-12-12] MEDS ORDERED: LIDOCAINE 1% INJ 10MG/ML (20 ML MDV) ONE (10:54)
--- NOTE | 2018-12-12 11:23 | P.PCN ---
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 INDICATIONS: The patient is a 73-year-old male who presents with a history of anemia. Benefits and risks of the procedure were described. Informed consent was obtained. DESCRIPTION: The patient was brought into the endoscopy suite and laid in the left lateral decubitus position. After a timeout was confirmed, the procedure was initiated. An Olympus gastroscope was passed along the posterior oropharynx down to the distal esophagus where the squamocolumnar junction was unremarkable. A questionable pocket was found along the esophagus highly suspicious for Zenker's diverticulum. The gastric pouch was entered. A gastrojejunal anastomosis was unremarkable and patent. The scope was advanced up to 60 cm from the incisors into the Anders limb. No gastrojejunal marginal ulcer was encountered. The GI tract was desufflated. The patient tolerated the procedure well. FINDINGS: No gastrojejunal ulceration Widely patent gastrojejunal anastomosis Possible Zenker's diverticulum. RECOMMENDATIONS: Upper endoscopy as needed.
--- NOTE | 2018-12-12 11:27 | P.PCN ---
Date of Procedure: 12/12/18 Description of Procedure: PREOPERATIVE DIAGNOSIS: Sigmoid colon cancer history Pandiverticulosis POSTOPERATIVE DIAGNOSIS: Recurrent neoplastic lesion sigmoid colon Pandiverticulosis OPERATION: Colonoscopy to the ileocecal valve and appendiceal orifice. Colonoscopy with hot snare polypectomy and cold forceps biopsy SURGEON: Joi Vegas MD. ANESTHESIA: MAC. INDICATIONS: The patient is a 73-year-old male who presents with diagnosed sigmoid cancer one to 2 years ago year ago. Benefits and risks were described and informed consent was obtained. DESCRIPTION OF PROCEDURE: The patient had undergone Gatorade, MiraLAX and Dulcolax prep. He had been brought into the operating room and laid in the left lateral decubitus position. After adequate intravenous sedation, the rectum was examined with 2% lidocaine jelly. No external hemorrhoids were encountered. The rectal tone was within normal limits. No lesions were palpated in the rectal vault. An Olympus colonoscope was advanced until the ileocecal valve and appendiceal orifice were clearly viewed. The prep was fair with visualization of the mucosal folds. The scope was removed with visualization of each mucosal fold. Moderate scattered diverticulosis was encountered. With the attention at the anastomosis at 15 cm from the anal verge, a polypoid lesion encompassing 40% of the circumference growth was identified with cold forceps biopsies and snare polypectomy of the specimen obtained. Lesion extended from 15-20 cm from the a nal verge. Residual Chely ink tattoo was found. Retroflexion of the scope demonstrated no grade 1 internal hemorrhoids. The colon was desufflated. The patient had tolerated the procedure well. Withdrawal time was over 6 minutes. FINDINGS: No internal hemorrhoids No external hemorrhoids No arteriovenous malformations Severe diverticulosis Attention at anastomosis, recurrent growth between 15-20 cm from the anal verge incorporating 40% of the circumference of the lumen with snare including cold forceps biopsies obtained RECOMMENDATIONS: We'll need resection of likely recurrent colon neoplasm of the sigmoid colon Plan - Discharge Summary Discharge Rx Participant: No New Discharge Prescriptions: No Action Metoprolol Tartrate [Lopressor] 50 mg PO BID Lisinopril [Zestril] 10 mg PO BID Aspirin [Adult Low Dose Aspirin EC] 81 mg PO DAILY Alive Multivitamin 1 tab PO DAILY Furosemide [Lasix] 20 mg PO MOWEFR Atorvastatin [Lipitor] 20 mg PO HS Vitamin A Acetate [Vitamin A] 10,000 unit SL DAILY Potassium Chloride [Klor-Con 20 Packets] 20 meq PO MOWEFR Calcium Citrate 500 mg PO TID Omeprazole 40 mg PO DAILY #90 capsule. Clopidogrel [Plavix] 75 mg PO DAILY Pantoprazole Sodium [Protonix] 20 mg PO DAILY Discharge Medication List Metoprolol Tartrate [Lopressor] 50 mg PO BID 03/17/15 [History] Lisinopril [Zestril] 10 mg PO BID 12/15/15 [History] Aspirin [Adult Low Dose Aspirin EC] 81 mg PO DAILY 08/22/17 [History] Alive Multivitamin 1 tab PO DAILY 10/04/17 [History] Furosemide [Lasix] 20 mg PO MOWEFR 12/25/17 [History] Atorvastatin [Lipitor] 20 mg PO HS 07/18/18 [History] Calcium Citrate 500 mg PO TID 07/18/18 [History] Omeprazole 40 mg PO DAILY #90 capsule. 07/18/18 [Rx] Potassium Chloride [Klor-Con 20 Packets] 20 meq PO MOWEFR 07/18/18 [History] Vitamin A Acetate [Vitamin A] 10,000 unit SL DAILY 07/18/18 [History] Clopidogrel [Plavix] 75 mg PO DAILY 12/10/18 [History] Pantoprazole Sodium [Protonix] 20 mg PO DAILY 12/10/18 [History]
[2018-12-12 11:54] VITALS: RESP 18
[2018-12-12 12:21] VITALS: BP 118/81; PULSE 72
== END 2018-12-12 13:45 | disposition home or self-care (01) ==
LOC: ORWHC2ENDO 10:12
PROVIDERS: ATTEND Surgery Plastic and Reconstructive Surgery
DX: C18.7 Malignant neoplasm of sigmoid colon (principal); K57.30 Diverticulosis of large intestine without perforation or abscess without bleeding; D64.9 Anemia, unspecified; I10 Essential (primary) hypertension; I25.10 Atherosclerotic heart disease of native coronary artery without angina pectoris; I48.91 Unspecified atrial fibrillation; E78.5 Hyperlipidemia, unspecified; Z87.11 Personal history of peptic ulcer disease; Z85.038 Personal history of other malignant neoplasm of large intestine; Z86.73 Personal history of transient ischemic attack (TIA), and cerebral infarction without residual deficits; Z79.82 Long term (current) use of aspirin; Z79.02 Long term (current) use of antithrombotics/antiplatelets; Z79.899 Other long term (current) drug therapy; Z85.828 Personal history of other malignant neoplasm of skin; Z98.84 Bariatric surgery status; Z90.49 Acquired absence of other specified parts of digestive tract; Z95.1 Presence of aortocoronary bypass graft; Z96.651 Presence of right artificial knee joint; Z96.643 Presence of artificial hip joint, bilateral; Z87.891 Personal history of nicotine dependence; Z82.49 Family history of ischemic heart disease and other diseases of the circulatory system; Z80.8 Family history of malignant neoplasm of other organs or systems; Z81.8 Family history of other mental and behavioral disorders
CPT/HCPCS: 88305; 45385; 43235; J2001; J2704; 43200; 45380